=== PATIENT | male | born 1945 | race Asian ===

== ENCOUNTER 2017-12-03 19:45 | Inpatient (IN) | payer MEDICARE, BC ==
[~2017-12-03] VITALS: Ht 165.1 cm; Wt 59.4 kg
[2017-12-03] MEDS ORDERED: MULTIVITAMINS1 EA14 PO (19:51)
[2017-12-03] MEDS ORDERED: VITAMIN C500 M1 ORAL (19:51)
[2017-12-03] MEDS ORDERED: VITAMIN E100 UNI2 ORAL (19:51)
[2017-12-03] MEDS ORDERED: ASPIR 8181 MG ORAL (19:51)
[2017-12-03] MEDS ORDERED: BETA CAROT10000 UNIT PO (19:51)
[2017-12-03] MEDS ORDERED: VITAMIN A8000 UNIT PO (19:51)
[2017-12-03 20:00] VITALS: BP 99/67
[2017-12-03 20:25] LABS: BASOPHILS % (AUTO) 0.9 % (0.0-2.0); EOSINOPHILS % (AUTO) 0.9 % (0.0-3.0); HEMATOCRIT 29.3 % (42.0-52.0); HEMOGLOBIN 10.1 G/DL (14.2-18.0); LYMPHOCYTES % (AUTO) 13.4 % (20.0-45.0); MEAN CORPUSCULAR VOLUME 89 FL (80-99); MONOCYTES % (AUTO) 5.2 % (1.0-10.0); NEUTROPHILS % (AUTO) 79.6 % (45.0-75.0); PLATELET COUNT 208 K/UL (150-450); RED CELL DISTRIBUTION WIDTH 11.3 % (11.6-14.8); WHITE BLOOD COUNT 13.8 K/UL (4.8-10.8)
[2017-12-03 20:32] LABS: ANION GAP 6 mmol/L (5-15); BLOOD UREA NITROGEN 35 mg/dL (7-18); CALCIUM 8.1 MG/DL (8.5-10.1); CARBON DIOXIDE 27 MMOL/L (21-32); CHLORIDE 108 MMOL/L (98-107); CREATININE 0.9 MG/DL (0.55-1.30); POTASSIUM 4.2 MMOL/L (3.5-5.1); SODIUM 141 MMOL/L (136-145)
[2017-12-03 20:33] LABS: INR 1.1 (0.9-1.1)
[2017-12-03 20:37] LABS: ALANINE AMINOTRANSFERASE 24 U/L (12-78); ALBUMIN 2.5 G/DL (3.4-5.0); ALKALINE PHOSPHATASE 76 U/L (46-116); ASPARTATE AMINO TRANSFERASE 17 U/L (15-37); BILIRUBIN,TOTAL 0.1 MG/DL (0.2-1.0)
[2017-12-03 21:01] VITALS: BP 102/62
[2017-12-03] MEDS ORDERED: Miralax 17gm pkt ORAL PRN (21:15)
[2017-12-03] MEDS ORDERED: Morphine Sulfate 2mg/ml Inj IVP PRN (21:15)
[2017-12-03] MEDS ORDERED: Nitroglycerin Subl 0.4mg tab SL PRN (21:15)
[2017-12-03] MEDS ORDERED: Mylanta II UD 30ml ORAL PRN (21:15)
[2017-12-03] MEDS ORDERED: Sodium Chloride 500ML 500 ML IV ONE (21:30)
[2017-12-03] MEDS ORDERED: Phytonadione 10 MG in D5W 55 ML IVPB SCH (22:00)
[2017-12-03 22:24] VITALS: BP 102/64
[2017-12-03 22:30] VITALS: BP 103/65
[2017-12-03] MEDS: D5NS 1,000 ML IV SCH (22:34)
--- NOTE | 2017-12-03 23:33 | Emergency Room Report ---
History of Present Illness General Chief Complaint: Gastrointestinal Bleed Source: Patient Present Illness HPI Patient is a 72-year-old male presented after increased bloody stools. 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 He was noted to be the recently seen by his oncologist and had been advised to have surveillance screening every 6 months. He was noted to have increased dark stools as well as some intermittent epigastric abdominal discomfort. The patient was noted to have the prior surgical removal of the cancerous lesions. The patient is not currently being treated for cancer at this time.The patient had cancer treatments at [facility] Allergies: Coded Allergies: No Known Allergies (Unverified , 12/03/17) Patient History Past Medical History: see triage record Reviewed Nursing Documentation: PMH: Agreed; PSxH: Agreed Nursing Documentation-PMH Hx Cardiac Problems: No Hx Cancer: Yes - duodenal cancer Hx Gastrointestinal Problems: No Hx Neurological Problems: No Review of Systems All Other Systems: negative except mentioned in HPI Physical Exam Vital Signs Date Time Temp Pulse Resp B/P (MAP) Pulse Ox O2 Delivery O2 Flow Rate FiO2 12/03/17 19:45 97.0 78 16 110/66 98 Room Air 97.0 Sp02 EP Interpretation: reviewed, normal General Appearance: normal inspection, well appearing, no apparent distress, alert, GCS 15, non-toxic Head: atraumatic ENT: normal ENT inspection, hearing grossly normal, normal voice Neck: normal inspection, full range of motion, supple, no bony tend Respiratory: normal inspection, lungs clear, normal breath sounds, no respiratory distress, no retraction, no wheezing Cardiovascular #1: regular rate, rhythm, no edema Gastrointestinal: normal inspection, normal bowel sounds, non tender, soft, no guarding, no hernia Genitourinary: no CVA tenderness Musculoskeletal: normal inspection, back normal, normal range of motion Neurologic: normal inspection, alert, oriented x3, responsive, 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, speech normal Psychiatric: normal inspection, judgement/insight normal, mood/affect normal Skin: normal inspection, normal color, no rash Medical Decision Making Diagnostic Impression: Primary Impression: Gastrointestinal hemorrhage Additional Impression: Hx of GI malignancy ER Course Patient's 72-year-old male presented after increased abdominal pain.Differential diagnoses included ischemic bowel, appendicitis, perforated viscus, abdominal aortic aneurysm, inferior myocardial infarction, viral gastroenteritis Because of complexity of patient's case laboratory testing and imaging studies were ordered.Patient is given IV fluidsThe patient given IV acid blockers. The EKG interpreted by me showed normal sinus rhythm with rate of [address] or T wave changes. Dr. Kartik London was contacted for inpatient management. Labs Test 12/03/17 20:00 White Blood Count 13.8 K/UL (4.8-10.8) Red Blood Count 3.30 M/UL (4.70-6.10) Hemoglobin 10.1 G/DL (14.2-18.0) Hematocrit 29.3 % (42.0-52.0) Mean Corpuscular Volume 89 FL (80-99) Mean Corpuscular Hemoglobin 30.7 PG (27.0-31.0) Mean Corpuscular Hemoglobin Concent 34.6 G/DL (32.0-36.0) Red Cell Distribution Width 11.3 % (11.6-14.8) Platelet Count 208 K/UL (150-450) Mean Platelet Volume 6.9 FL (6.5-10.1) Neutrophils (%) (Auto) 79.6 % (45.0-75.0) Lymphocytes (%) (Auto) 13.4 % (20.0-45.0) Monocytes (%) (Auto) 5.2 % (1.0-10.0) Eosinophils (%) (Auto) 0.9 % (0.0-3.0) Basophils (%) (Auto) 0.9 % (0.0-2.0) Prothrombin Time 11.2 SEC (9.30-11.50) Prothromb Time International Ratio 1.1 (0.9-1.1) Activated Partial Thromboplast Time 25 SEC (23-33) Sodium Level 141 MMOL/L (136-145) Potassium Level 4.2 MMOL/L (3.5-5.1) Chloride Level 108 MMOL/L (98-107) Carbon Dioxide Level 27 MMOL/L (21-32) Anion Gap 6 mmol/L (5-15) Blood Urea Nitrogen 35 mg/dL (7-18) Creatinine 0.9 MG/DL (0.55-1.30) Estimat Glomerular Filtration Rate mL/min (>60) Glucose Level 162 MG/DL (74-106) Calcium Level 8.1 MG/DL (8.5-10.1) Total Bilirubin 0.1 MG/DL (0.2-1.0) Aspartate Amino Transf (AST/SGOT) 17 U/L (15-37) Alanine Aminotransferase (ALT/SGPT) 24 U/L (12-78) Alkaline Phosphatase 76 U/L (46-116) Troponin I 0.009 ng/mL (0.000-0.056) Total Protein 5.1 G/DL (6.4-8.2) Albumin 2.5 G/DL (3.4-5.0) Globulin 2.6 g/dL Albumin/Globulin Ratio 1.0 (1.0-2.7) Lipase 97 U/L (73-393) Last Vital Signs Date Time Temp Pulse Resp B/P (MAP) Pulse Ox O2 Delivery O2 Flow Rate FiO2 12/03/17 22:56 Room Air 12/03/17 22:51 69 12/03/17 22:30 98.2 19 103/65 (78) 98 98.2 Status: unchanged Disposition: ADMITTED INPATIENT Condition: Serious Referrals: NON PHYSICIAN (PCP) Marko Carrasco MD Dec 03, 2017 23:33
[2017-12-04] VITALS: BP 99/59
[2017-12-04 04:00] VITALS: BP 100/80
[2017-12-04 04:13] LABS: APPEARANCE,URINE CLEAR; BILIRUBIN, URINE NEGATIVE (NEGATIVE); COLOR,URINE PALE YELLOW; GLUCOSE, URINE (UA) 3+ (NEGATIVE); KETONES,URINE NEGATIVE (NEGATIVE); LEUKOCYTE ESTERASE ,URINE NEGATIVE (NEGATIVE); NITRITE,URINE NEGATIVE (NEGATIVE); PH,URINE 6 (4.5-8.0); PROTEIN,URINE 1+ (NEGATIVE); UROBILINOGEN,URINE NORMAL MG/DL (0.0-1.0)
[2017-12-04] MEDS: D5NS 1,000 ML IV SCH ×3 (06:38→23:01)
--- NOTE | 2017-12-04 07:27 | Consultation ---
Consult Note Consult Note Hematology Consult RFC: 12/04/17 ANN-MARIE DACOSTA: Josue London RFC: Leukopenia, FTT, GI Bleed, Duodenal ulcer Present Illness HPI 72-year-old male presented after increased bloody stools. 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 He was noted to be the recently seen by his oncologist and had been advised to have surveillance screening every 6 months. He was noted to have increased dark stools as well as some intermittent epigastric abdominal discomfort. The patient was noted to have the prior surgical removal of the cancerous lesions. The patient is not currently being treated for cancer at this time.The patient had cancer treatments at [facility]. Allergies: No Known Allergies (Unverified , 12/03/17) Patient History Past Medical History: see triage record Reviewed Nursing Documentation: PMH: Agreed; PSxH: Agreed Nursing Documentation-PMH Hx Cardiac Problems: No Hx Cancer: Yes - duodenal cancer Hx Gastrointestinal Problems: No Hx Neurological Problems: No ER ROS - General Review of Systems All Other Systems: negative except mentioned in HPI ER Physical Exam - General Physical Exam Last 24 Hour Vital Signs Date Time Temp Pulse Resp B/P (MAP) Pulse Ox O2 Delivery O2 Flow Rate FiO2 12/04/17 04:00 97.5 81 18 100/80 (87) 98 97.5 12/04/17 04:00 65 12/04/17 00:00 97.6 63 18 99/59 (72) 99 97.6 12/04/17 00:00 63 12/03/17 22:56 Room Air 12/03/17 22:51 69 12/03/17 22:30 98.2 69 19 103/65 (78) 98 98.2 12/03/17 22:24 69 20 102/64 98 Room Air 12/03/17 22:24 69 20 102/64 98 Room Air 12/03/17 21:01 76 16 102/62 100 Room Air 12/03/17 20:00 73 14 99/67 100 Room Air 12/03/17 19:45 97.0 78 16 110/66 98 Room Air 97.0 Sp02 EP Interpretation: reviewed, normal General Appearance: normal inspection, well appearing Head: atraumatic ENT: normal ENT inspection, hearing grossly normal Neck: normal inspection, full range of motion Respiratory: normal inspection, lungs clear, normal breath sounds Cardiovascular #1: regular rate, rhythm Gastrointestinal: normal inspection, BS+ Genitourinary: no CVA tenderness Musculoskeletal: normal inspection, back normal Psychiatric: normal inspection, judgement/insight normal Skin: normal inspection, normal color, no rash Laboratory Tests Test 12/03/17 20:00 12/04/17 00:00 12/04/17 01:45 White Blood Count 13.8 K/UL (4.8-10.8) H Red Blood Count 3.30 M/UL (4.70-6.10) L Hemoglobin 10.1 G/DL (14.2-18.0) L Hematocrit 29.3 % (42.0-52.0) L Mean Corpuscular Volume 89 FL (80-99) Mean Corpuscular Hemoglobin 30.7 PG (27.0-31.0) Mean Corpuscular Hemoglobin Concent 34.6 G/DL (32.0-36.0) Red Cell Distribution Width 11.3 % (11.6-14.8) L Platelet Count 208 K/UL (150-450) Mean Platelet Volume 6.9 FL (6.5-10.1) Neutrophils (%) (Auto) 79.6 % (45.0-75.0) H Lymphocytes (%) (Auto) 13.4 % (20.0-45.0) L Monocytes (%) (Auto) 5.2 % (1.0-10.0) Eosinophils (%) (Auto) 0.9 % (0.0-3.0) Basophils (%) (Auto) 0.9 % (0.0-2.0) Prothrombin Time 11.2 SEC (9.30-11.50) Prothromb Time International Ratio 1.1 (0.9-1.1) Activated Partial Thromboplast Time 25 SEC (23-33) Sodium Level 141 MMOL/L (136-145) Potassium Level 4.2 MMOL/L (3.5-5.1) Chloride Level 108 MMOL/L (98-107) H Carbon Dioxide Level 27 MMOL/L (21-32) Anion Gap 6 mmol/L (5-15) Blood Urea Nitrogen 35 mg/dL (7-18) H Creatinine 0.9 MG/DL (0.55-1.30) Estimat Glomerular Filtration Rate mL/min (>60) Glucose Level 162 MG/DL (74-106) H Calcium Level 8.1 MG/DL (8.5-10.1) L Total Bilirubin 0.1 MG/DL (0.2-1.0) L Aspartate Amino Transf (AST/SGOT) 17 U/L (15-37) Alanine Aminotransferase (ALT/SGPT) 24 U/L (12-78) Alkaline Phosphatase 76 U/L (46-116) Troponin I 0.009 ng/mL (0.000-0.056) Total Protein 5.1 G/DL (6.4-8.2) L Albumin 2.5 G/DL (3.4-5.0) L Globulin 2.6 g/dL Albumin/Globulin Ratio 1.0 (1.0-2.7) Lipase 97 U/L (73-393) Urine Color Pale yellow Urine Appearance Clear Urine pH 6 (4.5-8.0) Urine Specific [place] 1.020 (1.005-1.035) Urine Protein 1+ (NEGATIVE) H Urine Glucose (UA) 3+ (NEGATIVE) H Urine Ketones Negative (NEGATIVE) Urine Blood 1+ (NEGATIVE) H Urine Nitrite Negative (NEGATIVE) Urine Bilirubin Negative (NEGATIVE) Urine Urobilinogen Normal MG/DL (0.0-1.0) Urine Leukocyte Esterase Negative (NEGATIVE) Urine RBC 0-2 /HPF (0 - 0) H Urine WBC 0 /HPF (0 - 0) Urine Squamous Epithelial Cells Few /LPF (NONE/OCC) Urine Bacteria None /HPF (NONE) Urine Eosinophils None seen (NONE SEEN) Urine Random Sodium 102 mmol/L (20-110) Urine Potassium Timed 84 mmol/L (12-62) H Stool Occult Blood Pending Assessment and Recs: # GI duodenal cancer -- has had resection and now getting chemotherapy, will need to obtain further history --> getting treatment at [facility] and will need to obtain further history --> order has been placed --> as per Gi eval, bleed may be originating from this tumor --> further chemo as per primary oncologist at [facility] --> cea has been ordered # Anemia due to Gi bleed --> trend h/h and as per gi --> may need endoscopy --> PPI bid has been ordered --> anemia panel has been ordered # Leukocytosis likely 2/2 malignancy v reactive process --> r/o infection and peripheral smear reviewed # FTT likely due to malignancy --> cea has been ordered # Increased abdominal pain. likely related to malignancy v other cause --> gi recs appreciated Greatly appreciate consultation! Ramy Pillai MD Dec 04, 2017 07:27
[2017-12-04 07:56] LABS: BASOPHILS % (AUTO) 0.9 % (0.0-2.0); EOSINOPHILS % (AUTO) 1.2 % (0.0-3.0); HEMATOCRIT 26.4 % (42.0-52.0); HEMOGLOBIN 8.8 G/DL (14.2-18.0); LYMPHOCYTES % (AUTO) 24.1 % (20.0-45.0); MEAN CORPUSCULAR VOLUME 87 FL (80-99); MONOCYTES % (AUTO) 5.8 % (1.0-10.0); PLATELET COUNT 187 K/UL (150-450); RED BLOOD COUNT 3.04 M/UL (4.70-6.10); RED CELL DISTRIBUTION WIDTH 11.4 % (11.6-14.8); WHITE BLOOD COUNT 8.1 K/UL (4.8-10.8)
[2017-12-04 08:00] VITALS: BP 105/50
[2017-12-04 08:28] LABS: % IRON SATURATION 23 % (15-50); IRON 48 ug/dL (50-175); TOTAL IRON BINDING CAPACITY 210 ug/dL (250-450)
[2017-12-04 08:29] LABS: LACTATE DEHYDROGENASE 118 U/L (81-234); PHOSPHORUS 2.9 MG/DL (2.5-4.9)
[2017-12-04 08:40] LABS: ALANINE AMINOTRANSFERASE 30 U/L (12-78); ALBUMIN 2.4 G/DL (3.4-5.0); ALKALINE PHOSPHATASE 63 U/L (46-116); AMYLASE 39 U/L (25-115); ANION GAP 4 mmol/L (5-15); ASPARTATE AMINO TRANSFERASE 18 U/L (15-37); BILIRUBIN,TOTAL 0.1 MG/DL (0.2-1.0); BLOOD UREA NITROGEN 24 mg/dL (7-18); CALCIUM 7.5 MG/DL (8.5-10.1); CARBON DIOXIDE 28 MMOL/L (21-32); CHLORIDE 110 MMOL/L (98-107); CREATININE 0.7 MG/DL (0.55-1.30); POTASSIUM 4.1 MMOL/L (3.5-5.1); SODIUM 142 MMOL/L (136-145)
[2017-12-04] MEDS ORDERED: Pantoprazole Inj IVP SCH (09:00)
[2017-12-04 09:08] LABS: CREATINE KINASE 74 U/L (26-308)
--- NOTE | 2017-12-04 10:14 | Consultation ---
History of Present Illness General Date patient seen: Dec 04, 2017 Chief Complaint: Gastrointestinal Bleed Present Illness HPI 72-year-old male with hx of duodenal cancer, s/p resection presented to [place] ER with dark, bloody stools and some intermittent epigastric abdominal discomfort. The patient is not currently being treated for cancer at this time. He is admitted to telemetry for further work up. Allergies: Coded Allergies: No Known Allergies (Unverified , 12/03/17) Medication History Scheduled Ascorbic Acid* (Vitamin C*), 500 MG ORAL DAILY, (Reported) Aspirin* (Aspir 81*), 81 MG ORAL DAILY, (Reported) Vitamin E Acid Succinate (Vitamin E), 100 UNIT ORAL DAILY, (Reported) Miscellaneous Medications Beta-Carotene (Beta Carotene), 10,000 UNIT PO, (Reported) Multivitamin (Multivitamins), 1 EACH PO, (Reported) Vitamin A (Vitamin A), 8,000 UNIT PO, (Reported) Patient History Healthcare decision maker Resuscitation status Full Code Advanced Directive on File No Past Medical/Surgical History Past Medical/Surgical History: (1) Hx of GI malignancy Review of Systems Gastrointestinal: Reports: abdominal pain, other - dark stool All Other Systems: negative except mentioned in HPI Physical Exam General Appearance: cachetic Lines, tubes and drains: peripheral HEENT: normocephalic, atraumatic Neck: non-tender, normal alignment Respiratory/Chest: chest wall non-tender, lungs clear Cardiovascular/Chest: normal peripheral pulses, normal rate Abdomen: normal bowel sounds, non tender Genitourinary/Rectal: normal genital exam Extremities: normal range of motion Skin Exam: normal pigmentation 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 normal Last 24 Hour Vital Signs Date Time Temp Pulse Resp B/P (MAP) Pulse Ox O2 Delivery O2 Flow Rate FiO2 12/04/17 09:00 Room Air 12/04/17 08:00 98.3 65 18 105/50 (68) 97 98.3 12/04/17 08:00 65 12/04/17 04:00 97.5 81 18 100/80 (87) 98 97.5 12/04/17 04:00 65 12/04/17 00:00 97.6 63 18 99/59 (72) 99 97.6 12/04/17 00:00 63 12/03/17 22:56 Room Air 12/03/17 22:51 69 12/03/17 22:30 98.2 69 19 103/65 (78) 98 98.2 12/03/17 22:24 69 20 102/64 98 Room Air 12/03/17 22:24 69 20 102/64 98 Room Air 12/03/17 21:01 76 16 102/62 100 Room Air 12/03/17 20:00 73 14 99/67 100 Room Air 12/03/17 19:45 97.0 78 16 110/66 98 Room Air 97.0 Intake and Output 12/03/17 12/04/17 19:00 07:00 Intake Total 1386 ml Balance 1386 ml Intake Oral 0 ml IV Total 1386 ml # Voids 2 # Bowel Movements 1 Laboratory Tests Test 12/03/17 20:00 12/04/17 00:00 12/04/17 01:45 12/04/17 07:10 White Blood Count 13.8 K/UL (4.8-10.8) H 8.1 K/UL (4.8-10.8) Red Blood Count 3.30 M/UL (4.70-6.10) L 3.04 M/UL (4.70-6.10) L Hemoglobin 10.1 G/DL (14.2-18.0) L 8.8 G/DL (14.2-18.0) L Hematocrit 29.3 % (42.0-52.0) L 26.4 % (42.0-52.0) L Mean Corpuscular Volume 89 FL (80-99) 87 FL (80-99) Mean Corpuscular Hemoglobin 30.7 PG (27.0-31.0) 29.0 PG (27.0-31.0) Mean Corpuscular Hemoglobin Concent 34.6 G/DL (32.0-36.0) 33.5 G/DL (32.0-36.0) Red Cell Distribution Width 11.3 % (11.6-14.8) L 11.4 % (11.6-14.8) L Platelet Count 208 K/UL (150-450) 187 K/UL (150-450) Mean Platelet Volume 6.9 FL (6.5-10.1) 6.8 FL (6.5-10.1) Neutrophils (%) (Auto) 79.6 % (45.0-75.0) H 68.0 % (45.0-75.0) Lymphocytes (%) (Auto) 13.4 % (20.0-45.0) L 24.1 % (20.0-45.0) Monocytes (%) (Auto) 5.2 % (1.0-10.0) 5.8 % (1.0-10.0) Eosinophils (%) (Auto) 0.9 % (0.0-3.0) 1.2 % (0.0-3.0) Basophils (%) (Auto) 0.9 % (0.0-2.0) 0.9 % (0.0-2.0) Prothrombin Time 11.2 SEC (9.30-11.50) 10.9 SEC (9.30-11.50) Prothromb Time International Ratio 1.1 (0.9-1.1) 1.0 (0.9-1.1) Activated Partial Thromboplast Time 25 SEC (23-33) 26 SEC (23-33) Sodium Level 141 MMOL/L (136-145) 142 MMOL/L (136-145) Potassium Level 4.2 MMOL/L (3.5-5.1) 4.1 MMOL/L (3.5-5.1) Chloride Level 108 MMOL/L (98-107) H 110 MMOL/L (98-107) H Carbon Dioxide Level 27 MMOL/L (21-32) 28 MMOL/L (21-32) Anion Gap 6 mmol/L (5-15) 4 mmol/L (5-15) L Blood Urea Nitrogen 35 mg/dL (7-18) H 24 mg/dL (7-18) H Creatinine 0.9 MG/DL (0.55-1.30) 0.7 MG/DL (0.55-1.30) Estimat Glomerular Filtration Rate mL/min (>60) mL/min (>60) Glucose Level 162 MG/DL (74-106) H 121 MG/DL (74-106) H Calcium Level 8.1 MG/DL (8.5-10.1) L 7.5 MG/DL (8.5-10.1) L Total Bilirubin 0.1 MG/DL (0.2-1.0) L 0.1 MG/DL (0.2-1.0) L Aspartate Amino Transf (AST/SGOT) 17 U/L (15-37) 18 U/L (15-37) Alanine Aminotransferase (ALT/SGPT) 24 U/L (12-78) 30 U/L (12-78) Alkaline Phosphatase 76 U/L (46-116) 63 U/L (46-116) Troponin I 0.009 ng/mL (0.000-0.056) Total Protein 5.1 G/DL (6.4-8.2) L 4.7 G/DL (6.4-8.2) L Albumin 2.5 G/DL (3.4-5.0) L 2.4 G/DL (3.4-5.0) L Globulin 2.6 g/dL 2.3 g/dL Albumin/Globulin Ratio 1.0 (1.0-2.7) 1.0 (1.0-2.7) Lipase 97 U/L (73-393) Urine Color Pale yellow Urine Appearance Clear Urine pH 6 (4.5-8.0) Urine Specific [place] 1.020 (1.005-1.035) Urine Protein 1+ (NEGATIVE) H Urine Glucose (UA) 3+ (NEGATIVE) H Urine Ketones Negative (NEGATIVE) Urine Blood 1+ (NEGATIVE) H Urine Nitrite Negative (NEGATIVE) Urine Bilirubin Negative (NEGATIVE) Urine Urobilinogen Normal MG/DL (0.0-1.0) Urine Leukocyte Esterase Negative (NEGATIVE) Urine RBC 0-2 /HPF (0 - 0) H Urine WBC 0 /HPF (0 - 0) Urine Squamous Epithelial Cells Few /LPF (NONE/OCC) Urine Bacteria None /HPF (NONE) Urine Eosinophils None seen (NONE SEEN) Urine Random Sodium 102 mmol/L (20-110) Urine Potassium Timed 84 mmol/L (12-62) H Stool Occult Blood Positive (NEGATIVE) Erythrocyte Sedimentation Rate 6 MM/HR (0-20) Reticulocyte Count Pending Phosphorus Level 2.9 MG/DL (2.5-4.9) Magnesium Level 1.9 MG/DL (1.8-2.4) Iron Level 48 ug/dL (50-175) L Total Iron Binding Capacity 210 ug/dL (250-450) L Percent Iron Saturation 23 % (15-50) Unsaturated Iron Binding 162 ug/dL (112-346) Ferritin 69 NG/ML (8-388) Lactate Dehydrogenase 118 U/L (81-234) C-Reactive Protein, Quantitative < 0.4 mg/dL (0.00-0.90) Amylase Level 39 U/L (25-115) Carcinoembryonic Antigen Pending Vitamin B12 Level 762 PG/ML (193-986) Folate 17.7 NG/ML (8.6-58.9) Test 12/04/17 08:00 Uric Acid 3.0 MG/DL (2.6-7.2) Total Creatine Kinase 74 U/L (26-308) Height (Feet): 5 Height (Inches): 5.00 Weight (Pounds): 131 Medications Current Medications Medications (Trade) Dose Ordered Sig/[place] Route PRN Reason Start Time Stop Time Status Last Admin Dose Admin Acetaminophen (Tylenol) 650 mg Q4H PRN ORAL fever 12/03/17 21:15 01/02/18 21:14 Al Hydroxide/Mg Hydroxide (Mylanta II) 30 ml Q6H PRN ORAL dyspepsia 12/03/17 21:15 01/02/18 21:14 Dextrose (Dextrose 50%) 25 ml Q30M PRN IV Hypoglycemia 12/03/17 21:15 01/02/18 21:14 Dextrose (Dextrose 50%) 50 ml Q30M PRN IV Hypoglycemia 12/03/17 21:15 01/02/18 21:14 Dextrose/Sodium Chloride 1,000 ml @ 100 mls/hr Q10H IV 12/03/17 21:09 01/02/18 21:08 12/04/17 06:38 Diphenhydramine HCl (Benadryl) 25 mg Q6H PRN ORAL Itching/Pruritis 12/03/17 21:15 01/02/18 21:14 Morphine Sulfate (Morphine Sulfate) 2 mg Q4H PRN IVP severe Pain (Pain Scale 7-10) 12/03/17 21:15 12/10/17 21:14 Nitroglycerin (Ntg) 0.4 mg Q5M X 3 DOSES PRN SL Prn Chest Pain 12/03/17 21:15 01/02/18 21:14 Ondansetron HCl (Zofran) 4 mg Q6H PRN IVP Nausea & Vomiting 12/03/17 21:15 01/02/18 21:14 Pantoprazole (Protonix) 40 mg BID IVP 12/04/17 09:00 01/03/18 08:59 12/04/17 08:05 Polyethylene Glycol (Miralax) 17 gm HSPRN PRN ORAL Constipation 12/03/17 21:15 01/02/18 21:14 Temazepam (Restoril) 15 mg HSPRN PRN ORAL Insomnia 12/03/17 21:15 12/10/17 21:14 Assessment/Plan Problem List: (1) Hx of GI malignancy ICD Codes: Z85.00 - Personal history of malignant neoplasm of unspecified digestive organ SNOMED: 297460025, 561751173 (2) Gastrointestinal hemorrhage ICD Codes: K92.2 - Gastrointestinal hemorrhage, unspecified SNOMED: 22130186, 771867482 (3) UGIB (upper gastrointestinal bleed) ICD Codes: K92.2 - Gastrointestinal hemorrhage, unspecified SNOMED: 60794424 Assessment/Plan NPO iv fluids prbc prn GI evaluation Surgical evaluation dvt prophylaxis H2 blockers symptomatic treatment Quang Causey MD Dec 04, 2017 10:14
[2017-12-04 11:22] VITALS: BP 105/50
--- NOTE | 2017-12-04 11:44 | Consultation ---
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 (not on current tx; prior tx at [facility]) presented to ED on 12/03 with dark, bloody stools and intermittent epigastric abd discomfort Afebrile mild leukocytosis, now resolved off abx Allergies: Coded Allergies: No Known Allergies (Unverified , 12/03/17) Medication History Scheduled Ascorbic Acid* (Vitamin C*), 500 MG ORAL DAILY, (Reported) Aspirin* (Aspir 81*), 81 MG ORAL DAILY, (Reported) Vitamin E Acid Succinate (Vitamin E), 100 UNIT ORAL DAILY, (Reported) Miscellaneous Medications Beta-Carotene (Beta Carotene), 10,000 UNIT PO, (Reported) Multivitamin (Multivitamins), 1 EACH PO, (Reported) Vitamin A (Vitamin A), 8,000 UNIT PO, (Reported) Patient History Healthcare decision maker Resuscitation status Full Code Advanced Directive on File No Patient History Narrative Pmhx: as above Shx: reviewed Fhx: non contributory Review of Systems All Other Systems: negative except mentioned in HPI Physical Exam Physical Exam Narrative General Appearance: normal inspection, well appearing Head: atraumatic ENT: normal ENT inspection, hearing grossly normal Neck: normal inspection, full range of motion Respiratory: normal inspection, lungs clear, normal breath sounds Cardiovascular regular rate, rhythm Gastrointestinal: normal inspection, BS+ Genitourinary: no CVA tenderness Musculoskeletal: normal inspection, back normal Skin: normal inspection, normal color, no rash Last 24 Hour Vital Signs Date Time Temp Pulse Resp B/P (MAP) Pulse Ox O2 Delivery O2 Flow Rate FiO2 12/04/17 11:22 98.3 77 18 105/50 (68) 99 98.3 12/04/17 09:00 Room Air 12/04/17 08:00 98.3 65 18 105/50 (68) 97 98.3 12/04/17 08:00 65 12/04/17 04:00 97.5 81 18 100/80 (87) 98 97.5 12/04/17 04:00 65 12/04/17 00:00 97.6 63 18 99/59 (72) 99 97.6 12/04/17 00:00 63 12/03/17 22:56 Room Air 12/03/17 22:51 69 12/03/17 22:30 98.2 69 19 103/65 (78) 98 98.2 12/03/17 22:24 69 20 102/64 98 Room Air 12/03/17 22:24 69 20 102/64 98 Room Air 12/03/17 21:01 76 16 102/62 100 Room Air 12/03/17 20:00 73 14 99/67 100 Room Air 12/03/17 19:45 97.0 78 16 110/66 98 Room Air 97.0 Intake and Output 12/03/17 12/04/17 19:00 07:00 Intake Total 1386 ml Balance 1386 ml Intake Oral 0 ml IV Total 1386 ml # Voids 2 # Bowel Movements 1 Laboratory Tests Test 12/03/17 20:00 12/04/17 00:00 12/04/17 01:45 12/04/17 07:10 White Blood Count 13.8 K/UL (4.8-10.8) H 8.1 K/UL (4.8-10.8) Red Blood Count 3.30 M/UL (4.70-6.10) L 3.04 M/UL (4.70-6.10) L Hemoglobin 10.1 G/DL (14.2-18.0) L 8.8 G/DL (14.2-18.0) L Hematocrit 29.3 % (42.0-52.0) L 26.4 % (42.0-52.0) L Mean Corpuscular Volume 89 FL (80-99) 87 FL (80-99) Mean Corpuscular Hemoglobin 30.7 PG (27.0-31.0) 29.0 PG (27.0-31.0) Mean Corpuscular Hemoglobin Concent 34.6 G/DL (32.0-36.0) 33.5 G/DL (32.0-36.0) Red Cell Distribution Width 11.3 % (11.6-14.8) L 11.4 % (11.6-14.8) L Platelet Count 208 K/UL (150-450) 187 K/UL (150-450) Mean Platelet Volume 6.9 FL (6.5-10.1) 6.8 FL (6.5-10.1) Neutrophils (%) (Auto) 79.6 % (45.0-75.0) H 68.0 % (45.0-75.0) Lymphocytes (%) (Auto) 13.4 % (20.0-45.0) L 24.1 % (20.0-45.0) Monocytes (%) (Auto) 5.2 % (1.0-10.0) 5.8 % (1.0-10.0) Eosinophils (%) (Auto) 0.9 % (0.0-3.0) 1.2 % (0.0-3.0) Basophils (%) (Auto) 0.9 % (0.0-2.0) 0.9 % (0.0-2.0) Prothrombin Time 11.2 SEC (9.30-11.50) 10.9 SEC (9.30-11.50) Prothromb Time International Ratio 1.1 (0.9-1.1) 1.0 (0.9-1.1) Activated Partial Thromboplast Time 25 SEC (23-33) 26 SEC (23-33) Sodium Level 141 MMOL/L (136-145) 142 MMOL/L (136-145) Potassium Level 4.2 MMOL/L (3.5-5.1) 4.1 MMOL/L (3.5-5.1) Chloride Level 108 MMOL/L (98-107) H 110 MMOL/L (98-107) H Carbon Dioxide Level 27 MMOL/L (21-32) 28 MMOL/L (21-32) Anion Gap 6 mmol/L (5-15) 4 mmol/L (5-15) L Blood Urea Nitrogen 35 mg/dL (7-18) H 24 mg/dL (7-18) H Creatinine 0.9 MG/DL (0.55-1.30) 0.7 MG/DL (0.55-1.30) Estimat Glomerular Filtration Rate mL/min (>60) mL/min (>60) Glucose Level 162 MG/DL (74-106) H 121 MG/DL (74-106) H Calcium Level 8.1 MG/DL (8.5-10.1) L 7.5 MG/DL (8.5-10.1) L Total Bilirubin 0.1 MG/DL (0.2-1.0) L 0.1 MG/DL (0.2-1.0) L Aspartate Amino Transf (AST/SGOT) 17 U/L (15-37) 18 U/L (15-37) Alanine Aminotransferase (ALT/SGPT) 24 U/L (12-78) 30 U/L (12-78) Alkaline Phosphatase 76 U/L (46-116) 63 U/L (46-116) Troponin I 0.009 ng/mL (0.000-0.056) Total Protein 5.1 G/DL (6.4-8.2) L 4.7 G/DL (6.4-8.2) L Albumin 2.5 G/DL (3.4-5.0) L 2.4 G/DL (3.4-5.0) L Globulin 2.6 g/dL 2.3 g/dL Albumin/Globulin Ratio 1.0 (1.0-2.7) 1.0 (1.0-2.7) Lipase 97 U/L (73-393) Urine Color Pale yellow Urine Appearance Clear Urine pH 6 (4.5-8.0) Urine Specific [place] 1.020 (1.005-1.035) Urine Protein 1+ (NEGATIVE) H Urine Glucose (UA) 3+ (NEGATIVE) H Urine Ketones Negative (NEGATIVE) Urine Blood 1+ (NEGATIVE) H Urine Nitrite Negative (NEGATIVE) Urine Bilirubin Negative (NEGATIVE) Urine Urobilinogen Normal MG/DL (0.0-1.0) Urine Leukocyte Esterase Negative (NEGATIVE) Urine RBC 0-2 /HPF (0 - 0) H Urine WBC 0 /HPF (0 - 0) Urine Squamous Epithelial Cells Few /LPF (NONE/OCC) Urine Bacteria None /HPF (NONE) Urine Eosinophils None seen (NONE SEEN) Urine Random Sodium 102 mmol/L (20-110) Urine Potassium Timed 84 mmol/L (12-62) H Stool Occult Blood Positive (NEGATIVE) Differential Total Cells Counted 100 Neutrophils % (Manual) 69 % (45-75) Lymphocytes % (Manual) 25 % (20-45) Monocytes % (Manual) 5 % (1-10) Eosinophils % (Manual) 1 % (0-3) Basophils % (Manual) 0 % (0-2) Band Neutrophils 0 % (0-8) Platelet Estimate Adequate Platelet Morphology Normal Hypochromasia 2+ Anisocytosis 1+ Spherocytes 1+ Erythrocyte Sedimentation Rate 6 MM/HR (0-20) Reticulocyte Count 1.6 % (0.0-2.0) Phosphorus Level 2.9 MG/DL (2.5-4.9) Magnesium Level 1.9 MG/DL (1.8-2.4) Iron Level 48 ug/dL (50-175) L Total Iron Binding Capacity 210 ug/dL (250-450) L Percent Iron Saturation 23 % (15-50) Unsaturated Iron Binding 162 ug/dL (112-346) Ferritin 69 NG/ML (8-388) Lactate Dehydrogenase 118 U/L (81-234) C-Reactive Protein, Quantitative < 0.4 mg/dL (0.00-0.90) Amylase Level 39 U/L (25-115) Carcinoembryonic Antigen Pending Vitamin B12 Level 762 PG/ML (193-986) Folate 17.7 NG/ML (8.6-58.9) Test 12/04/17 08:00 Uric Acid 3.0 MG/DL (2.6-7.2) Total Creatine Kinase 74 U/L (26-308) Height (Feet): 5 Height (Inches): 5.00 Weight (Pounds): 131 Medications Current Medications Medications (Trade) Dose Ordered Sig/Paloma Route PRN Reason Start Time Stop Time Status Last Admin Dose Admin Acetaminophen (Tylenol) 650 mg Q4H PRN ORAL fever 12/03/17 21:15 01/02/18 21:14 Al Hydroxide/Mg Hydroxide (Mylanta II) 30 ml Q6H PRN ORAL dyspepsia 12/03/17 21:15 01/02/18 21:14 Dextrose (Dextrose 50%) 25 ml Q30M PRN IV Hypoglycemia 12/03/17 21:15 01/02/18 21:14 Dextrose (Dextrose 50%) 50 ml Q30M PRN IV Hypoglycemia 12/03/17 21:15 01/02/18 21:14 Dextrose/Sodium Chloride 1,000 ml @ 75 mls/hr [id number] IV 12/04/17 10:03 01/02/18 10:02 12/04/17 10:24 Diphenhydramine HCl (Benadryl) 25 mg Q6H PRN ORAL Itching/Pruritis 12/03/17 21:15 01/02/18 21:14 Morphine Sulfate (Morphine Sulfate) 2 mg Q4H PRN IVP severe Pain (Pain Scale 7-10) 12/03/17 21:15 12/10/17 21:14 Nitroglycerin (Ntg) 0.4 mg Q5M X 3 DOSES PRN SL Prn Chest Pain 12/03/17 21:15 01/02/18 21:14 Ondansetron HCl (Zofran) 4 mg Q6H PRN IVP Nausea & Vomiting 12/03/17 21:15 01/02/18 21:14 Pantoprazole (Protonix) 40 mg BID IVP 12/04/17 09:00 01/03/18 08:59 12/04/17 08:05 Polyethylene Glycol (Miralax) 17 gm HSPRN PRN ORAL Constipation 12/03/17 21:15 01/02/18 21:14 Temazepam (Restoril) 15 mg HSPRN PRN ORAL Insomnia 12/03/17 21:15 12/10/17 21:14 Assessment/Plan Assessment/Plan Abx: None Assessment: Mild leukocytosis- resolved- likely reactive in the setting off GIB -u/a neg Afebrile GIB (melena, +occult blood) Abd pain duodenal CA s/p resection (not on current tx; prior tx at [facility]) Plan: -Continue to monitor off abx -f/u cx -Monitor CBC/CMP, temperatures -aspiration precautions -GI eval Thank you for this consultation. Will continue to follow along with you. Discussed with CHAVA. Tessa Luna M.D. Dec 04, 2017 11:44
--- NOTE | 2017-12-04 12:03 | GI Initial Consult Note ---
History of Present Illness General Date patient seen: Dec 04, 2017 Time patient seen: 12:00 Reason for Hospitalization: Gastrointestinal Bleed Referring physician: ZORAIDA ARITA Reason for Consultation: GI BLEED Present Illness HPI Patient is a 72-year-old male presented after increased bloody stools. 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 He was noted to be the recently seen by his oncologist and had been advised to have surveillance screening every 6 months. He was noted to have increased dark stools as well as some intermittent epigastric abdominal discomfort. The patient was noted to have the prior surgical removal of the cancerous lesions. The patient is not currently being treated for cancer at this time.The patient had cancer treatments at [facility] consulted for GI bleed. Pt seen, awake A&Ox4 NAD with no active s/sx of N/V/ D. Per patient had BRBPR and melena x1 days. Stated this is the first time he has had these episodes. 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 History of endoscopy / colonoscopy approximately a year ago. Labs reviewed show anemia and positive OB. Home Meds Reported Medications Beta-Carotene (BETA CAROTENE) 10,000 Unit Capsule, [id number] UNIT PO, CAP 12/03/17 Vitamin E Acid Succinate (VITAMIN E) 100 Unit Tablet, 100 UNIT ORAL DAILY, TAB 12/03/17 Vitamin A (VITAMIN A) 8,000 Unit Capsule, 8000 UNIT PO, CAP 12/03/17 Ascorbic Acid* (VITAMIN C*) 500 Mg Tablet, 500 MG ORAL DAILY, #30 TAB 0 Refills 12/03/17 Multivitamin (Multivitamins) 1 Each Tablet, 1 EACH PO, TAB 12/03/17 Aspirin* (ASPIR 81*) 81 Mg Tablet.dr, 81 MG ORAL DAILY, TAB 12/03/17 Med list reviewed/reconciled: Yes Allergies: Coded Allergies: No Known Allergies (Unverified , 12/03/17) Patient History History Provided By: Patient, Medical Record PMH Narrative Hx Cardiac Problems: No Hx Cancer: Yes - duodenal cancer Hx Gastrointestinal Problems: No Hx Neurological Problems: No Review of Systems All Other Systems: negative except mentioned in HPI Physical Exam Vital Signs Date Time Temp Pulse Resp B/P (MAP) Pulse Ox O2 Delivery O2 Flow Rate FiO2 12/03/17 19:45 97.0 78 16 110/66 98 Room Air 97.0 Sp02 EP Interpretation: reviewed, normal Labs Laboratory Tests Test 12/03/17 20:00 12/04/17 00:00 12/04/17 01:45 12/04/17 07:10 White Blood Count 13.8 K/UL (4.8-10.8) H 8.1 K/UL (4.8-10.8) Red Blood Count 3.30 M/UL (4.70-6.10) L 3.04 M/UL (4.70-6.10) L Hemoglobin 10.1 G/DL (14.2-18.0) L 8.8 G/DL (14.2-18.0) L Hematocrit 29.3 % (42.0-52.0) L 26.4 % (42.0-52.0) L Mean Corpuscular Volume 89 FL (80-99) 87 FL (80-99) Mean Corpuscular Hemoglobin 30.7 PG (27.0-31.0) 29.0 PG (27.0-31.0) Mean Corpuscular Hemoglobin Concent 34.6 G/DL (32.0-36.0) 33.5 G/DL (32.0-36.0) Red Cell Distribution Width 11.3 % (11.6-14.8) L 11.4 % (11.6-14.8) L Platelet Count 208 K/UL (150-450) 187 K/UL (150-450) Mean Platelet Volume 6.9 FL (6.5-10.1) 6.8 FL (6.5-10.1) Neutrophils (%) (Auto) 79.6 % (45.0-75.0) H 68.0 % (45.0-75.0) Lymphocytes (%) (Auto) 13.4 % (20.0-45.0) L 24.1 % (20.0-45.0) Monocytes (%) (Auto) 5.2 % (1.0-10.0) 5.8 % (1.0-10.0) Eosinophils (%) (Auto) 0.9 % (0.0-3.0) 1.2 % (0.0-3.0) Basophils (%) (Auto) 0.9 % (0.0-2.0) 0.9 % (0.0-2.0) Prothrombin Time 11.2 SEC (9.30-11.50) 10.9 SEC (9.30-11.50) Prothromb Time International Ratio 1.1 (0.9-1.1) 1.0 (0.9-1.1) Activated Partial Thromboplast Time 25 SEC (23-33) 26 SEC (23-33) Sodium Level 141 MMOL/L (136-145) 142 MMOL/L (136-145) Potassium Level 4.2 MMOL/L (3.5-5.1) 4.1 MMOL/L (3.5-5.1) Chloride Level 108 MMOL/L (98-107) H 110 MMOL/L (98-107) H Carbon Dioxide Level 27 MMOL/L (21-32) 28 MMOL/L (21-32) Anion Gap 6 mmol/L (5-15) 4 mmol/L (5-15) L Blood Urea Nitrogen 35 mg/dL (7-18) H 24 mg/dL (7-18) H Creatinine 0.9 MG/DL (0.55-1.30) 0.7 MG/DL (0.55-1.30) Estimat Glomerular Filtration Rate mL/min (>60) mL/min (>60) Glucose Level 162 MG/DL (74-106) H 121 MG/DL (74-106) H Calcium Level 8.1 MG/DL (8.5-10.1) L 7.5 MG/DL (8.5-10.1) L Total Bilirubin 0.1 MG/DL (0.2-1.0) L 0.1 MG/DL (0.2-1.0) L Aspartate Amino Transf (AST/SGOT) 17 U/L (15-37) 18 U/L (15-37) Alanine Aminotransferase (ALT/SGPT) 24 U/L (12-78) 30 U/L (12-78) Alkaline Phosphatase 76 U/L (46-116) 63 U/L (46-116) Troponin I 0.009 ng/mL (0.000-0.056) Total Protein 5.1 G/DL (6.4-8.2) L 4.7 G/DL (6.4-8.2) L Albumin 2.5 G/DL (3.4-5.0) L 2.4 G/DL (3.4-5.0) L Globulin 2.6 g/dL 2.3 g/dL Albumin/Globulin Ratio 1.0 (1.0-2.7) 1.0 (1.0-2.7) Lipase 97 U/L (73-393) Urine Color Pale yellow Urine Appearance Clear Urine pH 6 (4.5-8.0) Urine Specific [place] 1.020 (1.005-1.035) Urine Protein 1+ (NEGATIVE) H Urine Glucose (UA) 3+ (NEGATIVE) H Urine Ketones Negative (NEGATIVE) Urine Blood 1+ (NEGATIVE) H Urine Nitrite Negative (NEGATIVE) Urine Bilirubin Negative (NEGATIVE) Urine Urobilinogen Normal MG/DL (0.0-1.0) Urine Leukocyte Esterase Negative (NEGATIVE) Urine RBC 0-2 /HPF (0 - 0) H Urine WBC 0 /HPF (0 - 0) Urine Squamous Epithelial Cells Few /LPF (NONE/OCC) Urine Bacteria None /HPF (NONE) Urine Eosinophils None seen (NONE SEEN) Urine Random Sodium 102 mmol/L (20-110) Urine Potassium Timed 84 mmol/L (12-62) H Stool Occult Blood Positive (NEGATIVE) Differential Total Cells Counted 100 Neutrophils % (Manual) 69 % (45-75) Lymphocytes % (Manual) 25 % (20-45) Monocytes % (Manual) 5 % (1-10) Eosinophils % (Manual) 1 % (0-3) Basophils % (Manual) 0 % (0-2) Band Neutrophils 0 % (0-8) Platelet Estimate Adequate Platelet Morphology Normal Hypochromasia 2+ Anisocytosis 1+ Spherocytes 1+ Erythrocyte Sedimentation Rate 6 MM/HR (0-20) Reticulocyte Count 1.6 % (0.0-2.0) Phosphorus Level 2.9 MG/DL (2.5-4.9) Magnesium Level 1.9 MG/DL (1.8-2.4) Iron Level 48 ug/dL (50-175) L Total Iron Binding Capacity 210 ug/dL (250-450) L Percent Iron Saturation 23 % (15-50) Unsaturated Iron Binding 162 ug/dL (112-346) Ferritin 69 NG/ML (8-388) Lactate Dehydrogenase 118 U/L (81-234) C-Reactive Protein, Quantitative < 0.4 mg/dL (0.00-0.90) Amylase Level 39 U/L (25-115) Carcinoembryonic Antigen Pending Vitamin B12 Level 762 PG/ML (193-986) Folate 17.7 NG/ML (8.6-58.9) Test 12/04/17 08:00 Uric Acid 3.0 MG/DL (2.6-7.2) Total Creatine Kinase 74 U/L (26-308) General Appearance: well appearing, no apparent distress, alert Head: normocephalic EENT: PERRL/EOMI, normal ENT inspection Neck: supple Respiratory: normal breath sounds, no respiratory distress Cardiovascular: normal rate Gastrointestinal: normal inspection, non tender, soft, normal bowel sounds, non -distended Rectal: deferred Genitourinary: deferred Musculoskeletal: normal inspection, back normal Neurologic: normal inspection, alert, oriented x3, responsive Psychiatric: normal inspection, judgement/insight normal, memory normal Skin: normal inspection, normal color, no rash, warm/dry, palpation normal, well hydrated Lymphatic: normal inspection, no adenopathy Current Medications Current Medications Medications (Trade) Dose Ordered Sig/[place]oma Route PRN Reason Start Time Stop Time Status Last Admin Dose Admin Acetaminophen (Tylenol) 650 mg Q4H PRN ORAL fever 12/03/17 21:15 01/02/18 21:14 Al Hydroxide/Mg Hydroxide (Mylanta II) 30 ml Q6H PRN ORAL dyspepsia 12/03/17 21:15 01/02/18 21:14 Dextrose (Dextrose 50%) 25 ml Q30M PRN IV Hypoglycemia 12/03/17 21:15 01/02/18 21:14 Dextrose (Dextrose 50%) 50 ml Q30M PRN IV Hypoglycemia 12/03/17 21:15 01/02/18 21:14 Dextrose/Sodium Chloride 1,000 ml @ 75 mls/hr [id number] IV 12/04/17 10:03 01/02/18 10:02 12/04/17 10:24 Diphenhydramine HCl (Benadryl) 25 mg Q6H PRN ORAL Itching/Pruritis 12/03/17 21:15 01/02/18 21:14 Morphine Sulfate (Morphine Sulfate) 2 mg Q4H PRN IVP severe Pain (Pain Scale 7-10) 12/03/17 21:15 12/10/17 21:14 Nitroglycerin (Ntg) 0.4 mg Q5M X 3 DOSES PRN SL Prn Chest Pain 12/03/17 21:15 01/02/18 21:14 Ondansetron HCl (Zofran) 4 mg Q6H PRN IVP Nausea & Vomiting 12/03/17 21:15 01/02/18 21:14 Pantoprazole (Protonix) 40 mg BID IVP 12/04/17 09:00 01/03/18 08:59 12/04/17 08:05 Polyethylene Glycol (Miralax) 17 gm HSPRN PRN ORAL Constipation 12/03/17 21:15 01/02/18 21:14 Temazepam (Restoril) 15 mg HSPRN PRN ORAL Insomnia 12/03/17 21:15 12/10/17 21:14 GI: Plan Problems: (1) Gastrointestinal hemorrhage (2) Hx of GI malignancy (3) UGIB (upper gastrointestinal bleed) Plan EGD/colonoscopy scheduled tomorrow. - CLD now, NPO @ [place]. - hold all blood thinners prn transfusions ppi gtt fu labs will follow with additional recs post procedure Discussed with Dr. Hopkins. Thank you for this patient referral, we will follow. The patient was seen and examined at bedside and all new and available data was reviewed in the patients chart. I agree with the above findings, impression and plan. (Patient seen earlier today. Signature stamp does not reflect patient encounter time.). - MD Maday [facility] REGULATORY AFFAIRS ANALYST Dec 04, 2017 12:03
[2017-12-04] MEDS ORDERED: Pantoprazole 80 MG in NS 250 ML IV SCH (13:30)
--- NOTE | 2017-12-04 15:24 | Cardiology Report ---
APPROVED REPORT EKG Measurement Heart [id number] Normal sinus rhythm Normal ECG
[2017-12-04 15:48] VITALS: BP 101/59
[2017-12-04] MEDS ORDERED: Nulytely 4L ORAL SCH (16:00)
[2017-12-04] MEDS ORDERED: Bisacodyl EC 5mg tab ORAL SCH (16:00)
[2017-12-04] MEDS: Pantoprazole 80 MG in NS 250 ML IV SCH (18:24)
[2017-12-04 18:40] LABS: BASOPHILS % (AUTO) 1.2 % (0.0-2.0); EOSINOPHILS % (AUTO) 1.4 % (0.0-3.0); HEMATOCRIT 31.4 % (42.0-52.0); HEMOGLOBIN 10.6 G/DL (14.2-18.0); LYMPHOCYTES % (AUTO) 32.4 % (20.0-45.0); MEAN CORPUSCULAR VOLUME 89 FL (80-99); MONOCYTES % (AUTO) 5.5 % (1.0-10.0); NEUTROPHILS % (AUTO) 59.5 % (45.0-75.0); PLATELET COUNT 207 K/UL (150-450); RED BLOOD COUNT 3.53 M/UL (4.70-6.10); RED CELL DISTRIBUTION WIDTH 11.5 % (11.6-14.8); WHITE BLOOD COUNT 9.1 K/UL (4.8-10.8)
[2017-12-04 20:00] VITALS: BP 116/75
--- NOTE | 2017-12-04 22:15 | History and Physical Report ---
DATE OF ADMISSION: 12/03/2017 APPROXIMATE TIME SEEN: At 2 p.m. CONSULTANTS: 1. Ramy Pillai M.D. 2. Quang Causey M.D. 3. Cliff Hopkins M.D. 4. Yung Aaron M.D. 5. Lasha Thrasher M.D. CHIEF COMPLAINT: Rectal bleed, duodenal cancer history, leukocytosis. BRIEF HISTORY: This is a 72-year-old male, who lives at home, with history of duodenal cancer in 2012, status post surgery. The patient developed rectal bleed which was dark in nature. He was slightly dizzy, came to [facility], diagnosed with the above, and admitted to telemetry for further care. Currently, calm in bed, slightly weak, getting transfusion, no complaint otherwise. REVIEW OF SYSTEMS: No chest pain. No shortness of breath. No nausea, vomiting, or diarrhea. PAST MEDICAL HISTORY: Includes duodenal cancer. PAST SURGICAL HISTORY: Duodenal surgery, right hernia, and prostate surgery. ALLERGIES: Denies. MEDICATIONS: Include Fleet Enema, pantoprazole, bisacodyl, morphine, polyethylene glycol, Zofran, temazepam. SOCIAL HISTORY: No smoking. Occasional alcohol. No intravenous drug abuse. FAMILY HISTORY: Noncontributory. PHYSICAL EXAMINATION: GENERAL: Calm in bed, oriented x3, in no acute distress. VITAL SIGNS: Temperature is 98 degrees, pulse 77, respiratory rate 18, blood pressure 105/50. CARDIOVASCULAR: No murmur. LUNGS: Distant and clear. ABDOMEN: Bowel sounds positive. Nontender. Nondistended. EXTREMITIES: No cyanosis, clubbing, or edema. NEUROLOGIC: Cranial nerves II through XII are grossly intact. Deep tendon reflexes 2+/4. Muscle strength 5/5. LABORATORY DATA: Labs at this time show initial white count was 13 and now it is 8.1, hemoglobin was 10 and now hemoglobin and hematocrit is 8.8/26, otherwise CBC is normal. BMP shows chloride 110, BUN/creatinine 24/0.7. Albumin 2.4. INR is 1.0. Urinalysis, 1+ blood, 3+ glucose. Glucose 121. ASSESSMENT: Rectal bleed, history of duodenal cancer, leukocytosis which has improved, anemia. PLAN: Transfuse p.r.n., pain control, dietary followup, CBC and BMP in the morning, pending EGD and colonoscopy in the morning. We will continue to follow this patient. Kartik London D.O. DR: Андрей JOB#: [id number] CC:
[2017-12-04] MEDS ORDERED: Fleet's Enema 133ml RECTAL ONE (23:00)
[2017-12-05] VITALS (9 sets, daily range): BP systolic 103–149; BP diastolic 63–83
[2017-12-05] MEDS: Pantoprazole 80 MG in NS 250 ML IV SCH ×2 (04:02→14:17)
--- NOTE | 2017-12-05 06:44 | Anethesia Preoperative Eval ---
Anesthesia Pre-op PMH/ROS General Date of Evaluation: Dec 05, 2017 Time of Evaluation: 06:42 Anesthesiologist: rashmi ASA Score: ASA 3 Mallampati Score Class I : Soft palate, uvula, fauces, pillars visible Class II: Soft palate, uvula, fauces visible Class III: Soft palate, base of uvula visible Class IV: Only hard plate visible Mallampati Classification: Class II Surgeon: kim Diagnosis: ugib Surgical Procedure: egd/colonoscopy Anesthesia History: none Social History: smoking - former smoker Family History: no anesthesia problems Allergies: Coded Allergies: No Known Allergies (Unverified , 12/03/17) Medications: see eMAR Patient NPO?: Yes Past Medical History Gastrointestinal/Genitourinary: Reports: other - ugib, hx/o duodenal cancer Anesthesia Pre-op Phys. Exam Physician Exam Last Vital Signs Date Time Temp Pulse Resp B/P (MAP) Pulse Ox O2 Delivery O2 Flow Rate FiO2 12/05/17 04:00 66 12/05/17 04:00 98.1 18 115/65 (82) 98 98.1 12/04/17 21:00 Room Air Constitutional: NAD Neurologic: CN 2-12 intact Cardiovascular: RRR Respiratory: CTA Gastrointestinal: S/NT/ND Airway Exam Mallampati Score: Class II MO: full Neck: supple TMD: 2fb ROM: full Teeth: intact Anesthesia Pre-op A/P Labs Hematology Test 12/04/17 07:10 12/04/17 18:10 White Blood Count 8.1 K/UL (4.8-10.8) 9.1 K/UL (4.8-10.8) Red Blood Count 3.04 M/UL (4.70-6.10) L 3.53 M/UL (4.70-6.10) L Hemoglobin 8.8 G/DL (14.2-18.0) L 10.6 G/DL (14.2-18.0) L Hematocrit 26.4 % (42.0-52.0) L 31.4 % (42.0-52.0) L Mean Corpuscular Volume 87 FL (80-99) 89 FL (80-99) Mean Corpuscular Hemoglobin 29.0 PG (27.0-31.0) 30.1 PG (27.0-31.0) Mean Corpuscular Hemoglobin Concent 33.5 G/DL (32.0-36.0) 33.9 G/DL (32.0-36.0) Red Cell Distribution Width 11.4 % (11.6-14.8) L 11.5 % (11.6-14.8) L Platelet Count 187 K/UL (150-450) 207 K/UL (150-450) Mean Platelet Volume 6.8 FL (6.5-10.1) 6.7 FL (6.5-10.1) Neutrophils (%) (Auto) 68.0 % (45.0-75.0) 59.5 % (45.0-75.0) Lymphocytes (%) (Auto) 24.1 % (20.0-45.0) 32.4 % (20.0-45.0) Monocytes (%) (Auto) 5.8 % (1.0-10.0) 5.5 % (1.0-10.0) Eosinophils (%) (Auto) 1.2 % (0.0-3.0) 1.4 % (0.0-3.0) Basophils (%) (Auto) 0.9 % (0.0-2.0) 1.2 % (0.0-2.0) Differential Total Cells Counted 100 Neutrophils % (Manual) 69 % (45-75) Lymphocytes % (Manual) 25 % (20-45) Monocytes % (Manual) 5 % (1-10) Eosinophils % (Manual) 1 % (0-3) Basophils % (Manual) 0 % (0-2) Band Neutrophils 0 % (0-8) Platelet Estimate Adequate Platelet Morphology Normal Hypochromasia 2+ Anisocytosis 1+ Spherocytes 1+ Erythrocyte Sedimentation Rate 6 MM/HR (0-20) Reticulocyte Count 1.6 % (0.0-2.0) Coagulation Test 12/04/17 07:10 12/04/17 18:15 Prothrombin Time 10.9 SEC (9.30-11.50) 10.7 SEC (9.30-11.50) Prothromb Time International Ratio 1.0 (0.9-1.1) 1.0 (0.9-1.1) Activated Partial Thromboplast Time 26 SEC (23-33) Chemistry Test 12/04/17 07:10 12/04/17 08:00 Sodium Level 142 MMOL/L (136-145) Potassium Level 4.1 MMOL/L (3.5-5.1) Chloride Level 110 MMOL/L (98-107) H Carbon Dioxide Level 28 MMOL/L (21-32) Anion Gap 4 mmol/L (5-15) L Blood Urea Nitrogen 24 mg/dL (7-18) H Creatinine 0.7 MG/DL (0.55-1.30) Estimat Glomerular Filtration Rate mL/min (>60) Glucose Level 121 MG/DL (74-106) H Calcium Level 7.5 MG/DL (8.5-10.1) L Phosphorus Level 2.9 MG/DL (2.5-4.9) Magnesium Level 1.9 MG/DL (1.8-2.4) Iron Level 48 ug/dL (50-175) L Total Iron Binding Capacity 210 ug/dL (250-450) L Percent Iron Saturation 23 % (15-50) Unsaturated Iron Binding 162 ug/dL (112-346) Ferritin 69 NG/ML (8-388) Total Bilirubin 0.1 MG/DL (0.2-1.0) L Aspartate Amino Transf (AST/SGOT) 18 U/L (15-37) Alanine Aminotransferase (ALT/SGPT) 30 U/L (12-78) Alkaline Phosphatase 63 U/L (46-116) Lactate Dehydrogenase 118 U/L (81-234) C-Reactive Protein, Quantitative < 0.4 mg/dL (0.00-0.90) Total Protein 4.7 G/DL (6.4-8.2) L Albumin 2.4 G/DL (3.4-5.0) L Globulin 2.3 g/dL Albumin/Globulin Ratio 1.0 (1.0-2.7) Amylase Level 39 U/L (25-115) Carcinoembryonic Antigen Pending Vitamin B12 Level 762 PG/ML (193-986) Folate 17.7 NG/ML (8.6-58.9) Uric Acid 3.0 MG/DL (2.6-7.2) Total Creatine Kinase 74 U/L (26-308) Risk Assessment & Plan Assessment: [email or web address] Plan: mac Status Change Before Surgery: No Pre-Antibiotics Drug: na Daisha Licona MD Dec 05, 2017 06:44
[2017-12-05] MEDS ORDERED: DiphenhydrAMINE 50mg/ml Inj IVP PRN (06:45)
[2017-12-05] MEDS ORDERED: Atropine Inj 1mg/10ml Syr IV PRN (06:45)
[2017-12-05] MEDS ORDERED: Midazolam 2mg/2ml Inj IVP PRN (06:45)
[2017-12-05] MEDS ORDERED: fentaNYL 100 mcg/2 mL IV PRN (06:45)
[2017-12-05 07:40] LABS: HEMATOCRIT 27.6 % (42.0-52.0); HEMOGLOBIN 9.6 G/DL (14.2-18.0); MEAN CORPUSCULAR VOLUME 86 FL (80-99); PLATELET COUNT 173 K/UL (150-450); RED BLOOD COUNT 3.21 M/UL (4.70-6.10); RED CELL DISTRIBUTION WIDTH 11.2 % (11.6-14.8); WHITE BLOOD COUNT 5.5 K/UL (4.8-10.8)
[2017-12-05 07:46] LABS: INR 1.1 (0.9-1.1)
[2017-12-05 07:53] LABS: ANION GAP 5 mmol/L (5-15); BLOOD UREA NITROGEN 9 mg/dL (7-18); CALCIUM 7.9 MG/DL (8.5-10.1); CARBON DIOXIDE 27 MMOL/L (21-32); CHLORIDE 113 MMOL/L (98-107); CREATININE 0.7 MG/DL (0.55-1.30); POTASSIUM 3.6 MMOL/L (3.5-5.1); SODIUM 145 MMOL/L (136-145)
[2017-12-05 08:08] LABS: LACTATE DEHYDROGENASE 153 U/L (81-234)
[2017-12-05 08:22] LABS: % IRON SATURATION 46 % (15-50); IRON 109 ug/dL (50-175); TOTAL IRON BINDING CAPACITY 238 ug/dL (250-450)
--- NOTE | 2017-12-05 09:11 | General Progress Note ---
Assessment/Plan Problem List: (1) UGIB (upper gastrointestinal bleed) ICD Codes: K92.2 - Gastrointestinal hemorrhage, unspecified SNOMED: 87943877 (2) Hx of GI malignancy ICD Codes: Z85.00 - Personal history of malignant neoplasm of unspecified digestive organ SNOMED: 019352316, 125633634 (3) Gastrointestinal hemorrhage ICD Codes: K92.2 - Gastrointestinal hemorrhage, unspecified SNOMED: 19317887, 252140591 Assessment/Plan plan EGD and colonoscopy for today Subjective ROS Limited/Unobtainable: Yes Allergies: Coded Allergies: No Known Allergies (Unverified , 12/03/17) Objective Last 24 Hour Vital Signs Date Time Temp Pulse Resp B/P (MAP) Pulse Ox O2 Delivery O2 Flow Rate FiO2 12/05/17 08:25 Room Air 12/05/17 07:52 98.1 64 18 127/64 (85) 98 98.1 12/05/17 04:00 66 12/05/17 04:00 98.1 62 18 115/65 (82) 98 98.1 12/05/17 00:00 62 12/05/17 00:00 98.0 64 20 103/63 (76) 95 98.0 12/04/17 21:00 Room Air 12/04/17 20:00 97.9 65 18 116/75 (89) 99 97.9 12/04/17 20:00 64 12/04/17 16:00 62 12/04/17 15:48 97.5 64 18 101/59 (73) 98 97.5 12/04/17 12:00 65 12/04/17 11:22 98.3 77 18 105/50 (68) 99 98.3 Intake and Output 12/04/17 12/05/17 19:00 07:00 Intake Total 852.5 ml 1198 ml Balance 852.5 ml 1198 ml Intake Oral 240 ml IV Total 612.5 ml 1198 ml # Voids 3 5 # Bowel Movements 1 15 Laboratory Tests 12/04/17 13:27: Stool Occult Blood [Pending] 12/04/17 18:10: White Blood Count 9.1, Red Blood Count 3.53L, Hemoglobin 10.6L, Hematocrit 31.4L , Mean Corpuscular Volume 89, Mean Corpuscular Hemoglobin 30.1, Mean Corpuscular Hemoglobin Concent 33.9, Red Cell Distribution Width 11.5L, Platelet Count 207, Mean Platelet Volume 6.7, Neutrophils (%) (Auto) 59.5, Lymphocytes (%) (Auto) 32.4, Monocytes (%) (Auto) 5.5, Eosinophils (%) (Auto) 1.4, Basophils (%) (Auto) 1.2 12/04/17 18:15: Prothrombin Time 10.7, Prothromb Time International Ratio 1.0 12/05/17 05:54: White Blood Count 5.5, Red Blood Count 3.21L, Hemoglobin 9.6L, Hematocrit 27.6L , Mean Corpuscular Volume 86, Mean Corpuscular Hemoglobin 29.9, Mean Corpuscular Hemoglobin Concent 34.7, Red Cell Distribution Width 11.2L, Platelet Count 173, Mean Platelet Volume 7.0, Neutrophils (%) (Auto) , Lymphocytes (%) (Auto) , Monocytes (%) (Auto) , Eosinophils (%) (Auto) , Basophils (%) (Auto) , Prothrombin Time 11.2, Prothromb Time International Ratio 1.1, Differential Total Cells Counted 100, Neutrophils % (Manual) 65, Lymphocytes % (Manual) 28, Monocytes % (Manual) 6, Eosinophils % (Manual) 1, Basophils % (Manual) 0, Band Neutrophils 0, Platelet Estimate Adequate, Platelet Morphology Normal, Red Blood Cell Morphology Normal, Erythrocyte Sedimentation Rate 5, Reticulocyte Count 1.7, Activated Partial Thromboplast Time 27, Sodium Level 145, Potassium Level 3.6, Chloride Level 113H, Carbon Dioxide Level 27, Anion Gap 5, Blood Urea Nitrogen 9, Creatinine 0.7, Estimat Glomerular Filtration Rate , Glucose Level 113H, Calcium Level 7.9L, Iron Level 109, Total Iron Binding Capacity 238L, Percent Iron Saturation 46, Unsaturated Iron Binding 129, Lactate Dehydrogenase 153, Carcinoembryonic Antigen [Pending] , Vitamin B12 Level 861, Folate 18.5 Height (Feet): 5 Height (Inches): 5.00 Weight (Pounds): 131 General Appearance: alert EENT: normal ENT inspection Neck: supple Cardiovascular: normal rate Respiratory/Chest: decreased breath sounds Abdomen: normal bowel sounds, non tender, soft Extremities: non-tender Cliff Hopkins MD Dec 05, 2017 09:11
[2017-12-05] MEDS ORDERED: Lidocaine 1% MPF 10mg/ml 5ml ONE (09:30)
[2017-12-05] MEDS ORDERED: Propofol 200mg/20ml IV ONE (09:30)
[2017-12-05] MEDS ORDERED: NS 500ML IVPB ONE (09:35)
--- NOTE | 2017-12-05 09:37 | Pre-Procedure Note/Attestation ---
Pre-Procedure Note/Attestation Complete Prior to Procedure Planned Procedure: not applicable Procedure Narrative: esophagogastroduodenoscopy and colonoscopy Indications for Procedure Pre-Operative Diagnosis: gib Attestation I attest that I discussed the nature of the procedure; its benefits; risks and complications; and alternatives (and the risks and benefits of such alternatives ), prior to the procedure, with the patient (or the patient's legal senior patient account representative). I attest that, if there was a reasonable possibility of needing a blood transfusion, the patient (or the patient's legal senior patient account representative) was given the [facility] standardized written summary, pursuant to the Jatinder Sb Blood Safety Act ([place] Health and Safety Code # 1645, as amended). I attest that I re-evaluated the patient just prior to the surgery and that there has been no change in the patient's H&P, except as documented below: Cliff Hopkins MD Dec 05, 2017 09:37
--- NOTE | 2017-12-05 10:03 | Endoscopy Procedure Note ---
Endoscopy Procedure Note General Indication for Procedure: gib Procedures Performed: EGD, colonoscopy Operative Findings/Diagnosis: anestemosis ulcer, one colon polyp Specimen: yes Pt Tolerated Procedure Well: Yes Estimated Blood Loss: none Anesthesia Anesthesiologist: renita regalado Anesthesia: MAC Inserted Devices Implant(s) used?: No Quality Quality of Bowel Preparation: Good Did scope reach the cecum?: Yes GI Core Measures 50 yrs or older w/o bx or poly: Not Applicable 10yrs. F/U not recommended: Not Applicable Cliff Hopkins MD Dec 05, 2017 10:03
--- NOTE | 2017-12-05 11:15 | Procedure Note ---
DATE OF PROCEDURE: 12/05/2017 SURGEON: Cliff Hopkins M.D. ANESTHESIOLOGIST: Dr. Pérez. REFERRING PHYSICIAN: Kartik London D.O. PROCEDURE: Upper endoscopy with biopsy and hemostasis and then colonoscopy with biopsy. ANESTHESIA: Per Dr. Pérez. INSTRUMENT: Olympus adult flexible upper endoscope and colonoscope. INDICATION: GI bleeding. The procedure, risks, benefits, and possible consequences, including hemorrhage, aspiration, perforation and infection, and alternative treatments, were explained to the patient/legal guardian by Dr. Cliff Hopkins and the patient/legal guardian understood and accepted these risks. DESCRIPTION OF PROCEDURE: After informed consent was obtained and the patient was adequately sedated, Olympus upper endoscope was advanced from the mouth into the esophagus, subsequently into the stomach, and then into anastomosis. 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 There was evidence of a small ulceration at the anastomosis with a little bit blood, most probably the source of bleeding. At this time, we placed a small clip on this ulcer, which successfully stopped the bleeding. Then, we pulled the scope back into the stomach and random biopsy from antrum and body was obtained to rule out H. pylori infection. At this time, the upper endoscope was retrieved. The patient was turned over for colonoscopy. First, rectal exam was performed, which was normal. Then, the scope was advanced from the rectum into the cecum and then subsequently into the terminal ileum. Quality of prep was very good. The patient had a diminutive polyp in the transverse colon, removed with the cold biopsy forceps technique. The rest of the colonic examination grossly looked within normal limits. SUMMARY OF FINDINGS: 1. Anastomotic ulcer, status post hemostasis with 1 clip. 2. Gastritis, status post biopsy. 3. One colonic polyp removed, see above for details. RECOMMENDATIONS: 1. Follow up biopsy results and treat accordingly. 2. The patient to be on PPI and Carafate. 3. Advance diet. 4. Repeat colonoscopy in 5 years. I want to thank Dr. Kartik London for this kind referral. Cliff Hopkins M.D. DR: Tia JOB#: [id number] CC: Kartik London D.O.
--- NOTE | 2017-12-05 11:58 | Pulmonology Progress Note ---
Assessment/Plan Problems: (1) Hx of GI malignancy (2) Gastrointestinal hemorrhage (3) UGIB (upper gastrointestinal bleed) Assessment/Plan h/h stable just one unit of prbc on dec 04 med/surg dc iv fluids on Carafate and H2 blockers dc planning soon Subjective ROS Limited/Unobtainable: No Interval Events: upper and lower endoscopy done Constitutional: Reports: no symptoms HEENT: Repors: no symptoms Respiratory: Reports: no symptoms Cardiovascular: Reports: no symptoms Allergies: Coded Allergies: No Known Allergies (Unverified , 12/03/17) Objective Last 24 Hour Vital Signs Date Time Temp Pulse Resp B/P (MAP) Pulse Ox O2 Delivery O2 Flow Rate FiO2 12/05/17 10:28 98.2 53 18 125/77 99 Room Air 98.2 12/05/17 10:13 56 18 104/77 100 Nasal Cannula 2 12/05/17 10:08 57 18 128/76 100 Nasal Cannula 2 12/05/17 10:03 98.5 70 18 124/82 100 Nasal Cannula 2 98.5 12/05/17 08:25 Room Air 12/05/17 07:52 98.1 64 18 127/64 (85) 98 98.1 12/05/17 07:51 63 12/05/17 04:00 66 12/05/17 04:00 98.1 62 18 115/65 (82) 98 98.1 12/05/17 00:00 62 12/05/17 00:00 98.0 64 20 103/63 (76) 95 98.0 12/04/17 21:00 Room Air 12/04/17 20:00 97.9 65 18 116/75 (89) 99 97.9 12/04/17 20:00 64 12/04/17 16:00 62 12/04/17 15:48 97.5 64 18 101/59 (73) 98 97.5 12/04/17 12:00 65 Intake and Output 12/04/17 12/05/17 19:00 07:00 Intake Total 852.5 ml 1198 ml Balance 852.5 ml 1198 ml Intake Oral 240 ml IV Total 612.5 ml 1198 ml # Voids 3 5 # Bowel Movements 1 15 General Appearance: WD/WN HEENT: normocephalic Respiratory/Chest: chest wall non-tender, lungs clear Cardiovascular: normal peripheral pulses, normal rate Abdomen: normal bowel sounds, soft, non tender Genitourinary: normal external genitalia Extremities: no cyanosis Skin: no rash Neurologic/Psychiatric: car escort II-XII grossly normal Lymphatic: no neck adenopathy Laboratory Tests 12/04/17 13:27: Stool Occult Blood Negative 12/04/17 18:10: White Blood Count 9.1, Red Blood Count 3.53L, Hemoglobin 10.6L, Hematocrit 31.4L , Mean Corpuscular Volume 89, Mean Corpuscular Hemoglobin 30.1, Mean Corpuscular Hemoglobin Concent 33.9, Red Cell Distribution Width 11.5L, Platelet Count 207, Mean Platelet Volume 6.7, Neutrophils (%) (Auto) 59.5, Lymphocytes (%) (Auto) 32.4, Monocytes (%) (Auto) 5.5, Eosinophils (%) (Auto) 1.4, Basophils (%) (Auto) 1.2 12/04/17 18:15: Prothrombin Time 10.7, Prothromb Time International Ratio 1.0 12/05/17 05:54: White Blood Count 5.5, Red Blood Count 3.21L, Hemoglobin 9.6L, Hematocrit 27.6L , Mean Corpuscular Volume 86, Mean Corpuscular Hemoglobin 29.9, Mean Corpuscular Hemoglobin Concent 34.7, Red Cell Distribution Width 11.2L, Platelet Count 173, Mean Platelet Volume 7.0, Neutrophils (%) (Auto) , Lymphocytes (%) (Auto) , Monocytes (%) (Auto) , Eosinophils (%) (Auto) , Basophils (%) (Auto) , Prothrombin Time 11.2, Prothromb Time International Ratio 1.1, Differential Total Cells Counted 100, Neutrophils % (Manual) 65, Lymphocytes % (Manual) 28, Monocytes % (Manual) 6, Eosinophils % (Manual) 1, Basophils % (Manual) 0, Band Neutrophils 0, Platelet Estimate Adequate, Platelet Morphology Normal, Red Blood Cell Morphology Normal, Erythrocyte Sedimentation Rate 5, Reticulocyte Count 1.7, Activated Partial Thromboplast Time 27, Sodium Level 145, Potassium Level 3.6, Chloride Level 113H, Carbon Dioxide Level 27, Anion Gap 5, Blood Urea Nitrogen 9, Creatinine 0.7, Estimat Glomerular Filtration Rate , Glucose Level 113H, Calcium Level 7.9L, Iron Level 109, Total Iron Binding Capacity 238L, Percent Iron Saturation 46, Unsaturated Iron Binding 129, Lactate Dehydrogenase 153, Carcinoembryonic Antigen [Pending] , Vitamin B12 Level 861, Folate 18.5 Current Medications Medications (Trade) Dose Ordered Sig/Paloma Route PRN Reason Start Time Stop Time Status Last Admin Dose Admin Acetaminophen (Tylenol) 650 mg Q4H PRN ORAL fever 12/03/17 21:15 01/02/18 21:14 Al Hydroxide/Mg Hydroxide (Mylanta II) 30 ml Q6H PRN ORAL dyspepsia 12/03/17 21:15 01/02/18 21:14 Al Hydroxide/Mg Hydroxide (Mylanta) 15 ml Q1H PRN ORAL gi upset 12/05/17 06:45 12/05/17 15:00 Atropine Sulfate (Atropine) 0.5 mg Q5M PRN IV bpm less than 45 12/05/17 06:45 12/05/17 15:00 Dextrose (Dextrose 50%) 25 ml Q30M PRN IV Hypoglycemia 12/03/17 21:15 01/02/18 21:14 Dextrose (Dextrose 50%) 50 ml Q30M PRN IV Hypoglycemia 12/03/17 21:15 01/02/18 21:14 Dextrose/Sodium Chloride 1,000 ml @ 75 mls/hr [id number] IV 12/04/17 10:03 01/02/18 10:02 12/04/17 23:01 Diphenhydramine HCl (Benadryl) 25 mg Q15M PRN IVP Itching 12/05/17 06:45 12/05/17 15:00 Diphenhydramine HCl (Benadryl) 25 mg Q6H PRN ORAL Itching/Pruritis 12/03/17 21:15 01/02/18 21:14 Fentanyl Citrate (Sublimaze 100 mcg/2 mL) 25 mcg Q10M PRN IV Moderate Pain (Pain Scale 4-6) 12/05/17 06:45 12/05/17 15:00 Ferrous Sulfate (Feosol) 325 mg BID ORAL 12/05/17 09:00 01/04/18 08:59 Hydralazine HCl (Apresoline) 5 mg Q30M PRN IV SBP>160 OR___/DBP>90 OR___ 12/05/17 06:45 12/05/17 15:00 Midazolam HCl (Versed 2mg/2ml vial) 1 mg Q15M PRN IVP For Anxiety 12/05/17 06:45 12/05/17 15:00 Morphine Sulfate (Morphine Sulfate) 2 mg Q4H PRN IVP severe Pain (Pain Scale 7-10) 12/03/17 21:15 12/10/17 21:14 Nitroglycerin (Ntg) 0.4 mg Q5M X 3 DOSES PRN SL Prn Chest Pain 12/03/17 21:15 01/02/18 21:14 Ondansetron HCl (Zofran) 4 mg Q1H PRN IVP Nausea & Vomiting 12/05/17 06:45 12/05/17 15:00 Ondansetron HCl (Zofran) 4 mg Q6H PRN IVP Nausea & Vomiting 12/03/17 21:15 01/02/18 21:14 Pantoprazole 80 mg/Sodium Chloride 250 ml @ 25 mls/hr Q10H IV 12/04/17 18:00 01/03/18 17:59 12/05/17 04:02 Polyethylene Glycol (Miralax) 17 gm HSPRN PRN ORAL Constipation 12/03/17 21:15 01/02/18 21:14 Sucralfate (Carafate) 1 gm FOUR TIMES A DAY ORAL 12/05/17 13:00 01/04/18 12:59 Temazepam (Restoril) 15 mg HSPRN PRN ORAL Insomnia 12/03/17 21:15 12/10/17 21:14 Quang Causey MD Dec 05, 2017 11:58
--- NOTE | 2017-12-05 12:14 | Infectious Diseases Prog Note ---
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 Will continue to follow along with you. Discussed with RN. Subjective Allergies: Coded Allergies: No Known Allergies (Unverified , 12/03/17) Subjective afebrile no leukcoytosis off abx s/p EGD and colo today Objective Vital Signs Last 24 Hour Vital Signs Date Time Temp Pulse Resp B/P (MAP) Pulse Ox O2 Delivery O2 Flow Rate FiO2 12/05/17 10:28 98.2 53 18 125/77 99 Room Air 98.2 12/05/17 10:13 56 18 104/77 100 Nasal Cannula 2 12/05/17 10:08 57 18 128/76 100 Nasal Cannula 2 12/05/17 10:03 98.5 70 18 124/82 100 Nasal Cannula 2 98.5 12/05/17 08:25 Room Air 12/05/17 07:52 98.1 64 18 127/64 (85) 98 98.1 12/05/17 07:51 63 12/05/17 04:00 66 12/05/17 04:00 98.1 62 18 115/65 (82) 98 98.1 12/05/17 00:00 62 12/05/17 00:00 98.0 64 20 103/63 (76) 95 98.0 12/04/17 21:00 Room Air 12/04/17 20:00 97.9 65 18 116/75 (89) 99 97.9 12/04/17 20:00 64 12/04/17 16:00 62 12/04/17 15:48 97.5 64 18 101/59 (73) 98 97.5 Height (Feet): 5 Height (Inches): 5.00 Weight (Pounds): 131 Objective General Appearance: normal inspection, well appearing Head: atraumatic ENT: normal ENT inspection, hearing grossly normal Neck: normal inspection, full range of motion Respiratory: normal inspection, lungs clear, normal breath sounds Cardiovascular regular rate, rhythm Gastrointestinal: normal inspection, BS+ Genitourinary: no CVA tenderness Musculoskeletal: normal inspection, back normal Skin: normal inspection, normal color, no rash Laboratory Tests Test 12/04/17 13:27 12/04/17 18:10 12/04/17 18:15 12/05/17 05:54 Stool Occult Blood Negative (NEGATIVE) White Blood Count 9.1 K/UL (4.8-10.8) 5.5 K/UL (4.8-10.8) Red Blood Count 3.53 M/UL (4.70-6.10) L 3.21 M/UL (4.70-6.10) L Hemoglobin 10.6 G/DL (14.2-18.0) L 9.6 G/DL (14.2-18.0) L Hematocrit 31.4 % (42.0-52.0) L 27.6 % (42.0-52.0) L Mean Corpuscular Volume 89 FL (80-99) 86 FL (80-99) Mean Corpuscular Hemoglobin 30.1 PG (27.0-31.0) 29.9 PG (27.0-31.0) Mean Corpuscular Hemoglobin Concent 33.9 G/DL (32.0-36.0) 34.7 G/DL (32.0-36.0) Red Cell Distribution Width 11.5 % (11.6-14.8) L 11.2 % (11.6-14.8) L Platelet Count 207 K/UL (150-450) 173 K/UL (150-450) Mean Platelet Volume 6.7 FL (6.5-10.1) 7.0 FL (6.5-10.1) Neutrophils (%) (Auto) 59.5 % (45.0-75.0) % (45.0-75.0) Lymphocytes (%) (Auto) 32.4 % (20.0-45.0) % (20.0-45.0) Monocytes (%) (Auto) 5.5 % (1.0-10.0) % (1.0-10.0) Eosinophils (%) (Auto) 1.4 % (0.0-3.0) % (0.0-3.0) Basophils (%) (Auto) 1.2 % (0.0-2.0) % (0.0-2.0) Prothrombin Time 10.7 SEC (9.30-11.50) 11.2 SEC (9.30-11.50) Prothromb Time International Ratio 1.0 (0.9-1.1) 1.1 (0.9-1.1) Differential Total Cells Counted 100 Neutrophils % (Manual) 65 % (45-75) Lymphocytes % (Manual) 28 % (20-45) Monocytes % (Manual) 6 % (1-10) Eosinophils % (Manual) 1 % (0-3) Basophils % (Manual) 0 % (0-2) Band Neutrophils 0 % (0-8) Platelet Estimate Adequate Platelet Morphology Normal Red Blood Cell Morphology Normal Erythrocyte Sedimentation Rate 5 MM/HR (0-20) Reticulocyte Count 1.7 % (0.0-2.0) Activated Partial Thromboplast Time 27 SEC (23-33) Sodium Level 145 MMOL/L (136-145) Potassium Level 3.6 MMOL/L (3.5-5.1) Chloride Level 113 MMOL/L (98-107) H Carbon Dioxide Level 27 MMOL/L (21-32) Anion Gap 5 mmol/L (5-15) Blood Urea Nitrogen 9 mg/dL (7-18) Creatinine 0.7 MG/DL (0.55-1.30) Estimat Glomerular Filtration Rate mL/min (>60) Glucose Level 113 MG/DL (74-106) H Calcium Level 7.9 MG/DL (8.5-10.1) L Iron Level 109 ug/dL (50-175) Total Iron Binding Capacity 238 ug/dL (250-450) L Percent Iron Saturation 46 % (15-50) Unsaturated Iron Binding 129 ug/dL (112-346) Lactate Dehydrogenase 153 U/L (81-234) Carcinoembryonic Antigen Pending Vitamin B12 Level 861 PG/ML (193-986) Folate 18.5 NG/ML (8.6-58.9) Current Medications Medications (Trade) Dose Ordered Sig/[place]oma Route PRN Reason Start Time Stop Time Status Last Admin Dose Admin Acetaminophen (Tylenol) 650 mg Q4H PRN ORAL fever 12/03/17 21:15 01/02/18 21:14 Al Hydroxide/Mg Hydroxide (Mylanta II) 30 ml Q6H PRN ORAL dyspepsia 12/03/17 21:15 01/02/18 21:14 Al Hydroxide/Mg Hydroxide (Mylanta) 15 ml Q1H PRN ORAL gi upset 12/05/17 06:45 12/05/17 15:00 Atropine Sulfate (Atropine) 0.5 mg Q5M PRN IV bpm less than 45 12/05/17 06:45 12/05/17 15:00 Dextrose (Dextrose 50%) 25 ml Q30M PRN IV Hypoglycemia 12/03/17 21:15 01/02/18 21:14 Dextrose (Dextrose 50%) 50 ml Q30M PRN IV Hypoglycemia 12/03/17 21:15 01/02/18 21:14 Dextrose/Sodium Chloride 1,000 ml @ 75 mls/hr [id number] IV 12/04/17 10:03 01/02/18 10:02 12/04/17 23:01 Diphenhydramine HCl (Benadryl) 25 mg Q15M PRN IVP Itching 12/05/17 06:45 12/05/17 15:00 Diphenhydramine HCl (Benadryl) 25 mg Q6H PRN ORAL Itching/Pruritis 12/03/17 21:15 01/02/18 21:14 Fentanyl Citrate (Sublimaze 100 mcg/2 mL) 25 mcg Q10M PRN IV Moderate Pain (Pain Scale 4-6) 12/05/17 06:45 12/05/17 15:00 Ferrous Sulfate (Feosol) 325 mg BID ORAL 12/05/17 09:00 01/04/18 08:59 Hydralazine HCl (Apresoline) 5 mg Q30M PRN IV SBP>160 OR___/DBP>90 OR___ 12/05/17 06:45 12/05/17 15:00 Midazolam HCl (Versed 2mg/2ml vial) 1 mg Q15M PRN IVP For Anxiety 12/05/17 06:45 12/05/17 15:00 Morphine Sulfate (Morphine Sulfate) 2 mg Q4H PRN IVP severe Pain (Pain Scale 7-10) 12/03/17 21:15 12/10/17 21:14 Nitroglycerin (Ntg) 0.4 mg Q5M X 3 DOSES PRN SL Prn Chest Pain 12/03/17 21:15 01/02/18 21:14 Ondansetron HCl (Zofran) 4 mg Q1H PRN IVP Nausea & Vomiting 12/05/17 06:45 12/05/17 15:00 Ondansetron HCl (Zofran) 4 mg Q6H PRN IVP Nausea & Vomiting 12/03/17 21:15 01/02/18 21:14 Pantoprazole 80 mg/Sodium Chloride 250 ml @ 25 mls/hr Q10H IV 12/04/17 18:00 01/03/18 17:59 12/05/17 04:02 Polyethylene Glycol (Miralax) 17 gm HSPRN PRN ORAL Constipation 12/03/17 21:15 01/02/18 21:14 Sucralfate (Carafate) 1 gm FOUR TIMES A DAY ORAL 12/05/17 13:00 01/04/18 12:59 Temazepam (Restoril) 15 mg HSPRN PRN ORAL Insomnia 12/03/17 21:15 12/10/17 21:14 Tessa Luna M.D. Dec 05, 2017 12:14
--- NOTE | 2017-12-05 12:43 | Immediate Post-Op Evaluation ---
Immediate Post-Op Evalulation Immediate Post-Op Evalulation Date of Evaluation: Dec 05, 2017 Time of Evaluation: 10:15 IV Fluids: 200ml 0.9ns Blood Products: none Estimated Blood Loss: negligible Blood Pressure Systolic: 124 Blood Pressure Diastolic: 82 Pulse Rate: 70 Respiratory Rate: 18 O2 Sat by Pulse Oximetry: 100 Temperature (Fahrenheit): 98.5 Pain Score (1-10): 0 Nausea: No Vomiting: No Complications none Patient Status: awake, reacts, patent Hydration Status: adequate Drug: Daisha Enamorado MD Dec 05, 2017 12:43
--- NOTE | 2017-12-05 12:45 | 48 Hour Post Anesthesia Eval ---
Post Anesthesia Evaluation Procedure: egd/colonoscopy/bx Date of Evaluation: Dec 05, 2017 Time of Evaluation: 10:17 Blood Pressure Systolic: 130 0: 84 Pulse Rate: 70 Respiratory Rate: 18 Temperature (Fahrenheit): 98.5 O2 Sat by Pulse Oximetry: 100 Airway: patent Nausea: No Vomiting: No Pain Intensity: 0 Hydration Status: adequate Cardiopulmonary Status: stable Mental Status/LOC: patient returned to baseline Post-Anesthesia Complications: none Follow-up care needed: N/A Daisha Licona MD Dec 05, 2017 12:45
[2017-12-05] MEDS: Sucralfate 1gm tab ORAL SCH ×2 (12:49→17:01)
[2017-12-05] MEDS: D5NS 1,000 ML IV SCH (12:49)
[2017-12-05] MEDS ORDERED: CARAFATE1 G1 ORAL (13:40)
--- NOTE | 2017-12-05 14:01 | General Progress Note ---
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 --> further chemo as per primary oncologist at [facility] --> cea has been ordered # Anemia of iron deficiency. --> Cont on po iron # Anemia due to Gi bleed --> trend h/h and as per gi --> may need endoscopy --> PPI bid has been ordered --> anemia panel has been reviewed. Will trend CBC as needed. # Leukocytosis likely 2/2 malignancy v reactive process --> r/o infection and peripheral smear reviewed # FTT likely due to malignancy --> cea has been ordered - PENDING # Increased abdominal pain. likely related to malignancy v other cause --> gi recs appreciated Greatly appreciate consultation! Subjective Date patient seen: Dec 05, 2017 Hematologic/Lymphatic: Reports: anemia Allergies: Coded Allergies: No Known Allergies (Unverified , 12/03/17) All Systems: reviewed and negative except above Subjective Pt awake and alert. Pt states he wants to go home. H/H stable. ANASTOMOSIS ULCER FOUND WITHOUT ACTIVE BLEED AND ENDOCLIP PLACED X1. Objective Last 24 Hour Vital Signs Date Time Temp Pulse Resp B/P (MAP) Pulse Ox O2 Delivery O2 Flow Rate FiO2 12/05/17 12:45 209.3 70 18 100 12/05/17 12:43 209.3 70 18 100 12/05/17 12:25 98.1 61 18 143/83 (103) 98 98.1 12/05/17 12:12 60 12/05/17 10:28 98.2 53 18 125/77 99 Room Air 98.2 12/05/17 10:13 56 18 104/77 100 Nasal Cannula 2 12/05/17 10:08 57 18 128/76 100 Nasal Cannula 2 12/05/17 10:03 98.5 70 18 124/82 100 Nasal Cannula 2 98.5 12/05/17 08:25 Room Air 12/05/17 07:52 98.1 64 18 127/64 (85) 98 98.1 12/05/17 07:51 63 12/05/17 04:00 66 12/05/17 04:00 98.1 62 18 115/65 (82) 98 98.1 12/05/17 00:00 62 12/05/17 00:00 98.0 64 20 103/63 (76) 95 98.0 12/04/17 21:00 Room Air 12/04/17 20:00 97.9 65 18 116/75 (89) 99 97.9 12/04/17 20:00 64 12/04/17 16:00 62 12/04/17 15:48 97.5 64 18 101/59 (73) 98 97.5 Intake and Output 12/04/17 12/05/17 19:00 07:00 Intake Total 852.5 ml 1198 ml Balance 852.5 ml 1198 ml Intake Oral 240 ml IV Total 612.5 ml 1198 ml # Voids 3 5 # Bowel Movements 1 15 Laboratory Tests 12/04/17 18:10: White Blood Count 9.1, Red Blood Count 3.53L, Hemoglobin 10.6L, Hematocrit 31.4L , Mean Corpuscular Volume 89, Mean Corpuscular Hemoglobin 30.1, Mean Corpuscular Hemoglobin Concent 33.9, Red Cell Distribution Width 11.5L, Platelet Count 207, Mean Platelet Volume 6.7, Neutrophils (%) (Auto) 59.5, Lymphocytes (%) (Auto) 32.4, Monocytes (%) (Auto) 5.5, Eosinophils (%) (Auto) 1.4, Basophils (%) (Auto) 1.2 12/04/17 18:15: Prothrombin Time 10.7, Prothromb Time International Ratio 1.0 12/05/17 05:54: White Blood Count 5.5, Red Blood Count 3.21L, Hemoglobin 9.6L, Hematocrit 27.6L , Mean Corpuscular Volume 86, Mean Corpuscular Hemoglobin 29.9, Mean Corpuscular Hemoglobin Concent 34.7, Red Cell Distribution Width 11.2L, Platelet Count 173, Mean Platelet Volume 7.0, Neutrophils (%) (Auto) , Lymphocytes (%) (Auto) , Monocytes (%) (Auto) , Eosinophils (%) (Auto) , Basophils (%) (Auto) , Prothrombin Time 11.2, Prothromb Time International Ratio 1.1, Differential Total Cells Counted 100, Neutrophils % (Manual) 65, Lymphocytes % (Manual) 28, Monocytes % (Manual) 6, Eosinophils % (Manual) 1, Basophils % (Manual) 0, Band Neutrophils 0, Other Cell Type , Platelet Estimate Adequate, Platelet Morphology Normal, Red Blood Cell Morphology Normal, Erythrocyte Sedimentation Rate 5, Reticulocyte Count 1.7, Activated Partial Thromboplast Time 27, Sodium Level 145, Potassium Level 3.6, Chloride Level 113H , Carbon Dioxide Level 27, Anion Gap 5, Blood Urea Nitrogen 9, Creatinine 0.7, Estimat Glomerular Filtration Rate , Glucose Level 113H, Calcium Level 7.9L, Iron Level 109, Total Iron Binding Capacity 238L, Percent Iron Saturation 46, Unsaturated Iron Binding 129, Lactate Dehydrogenase 153, Carcinoembryonic Antigen [Pending], Vitamin B12 Level 861, Folate 18.5 Height (Feet): 5 Height (Inches): 5.00 Weight (Pounds): 131 General Appearance: no apparent distress, alert EENT: PERRL/EOMI Neck: normal alignment Cardiovascular: normal peripheral pulses Respiratory/Chest: no respiratory distress Abdomen: tender Ramy Pillai MD Dec 05, 2017 14:01
--- NOTE | 2017-12-05 14:33 | General Progress Note ---
Assessment/Plan Problem List: (1) Gastrointestinal hemorrhage ICD Codes: K92.2 - Gastrointestinal hemorrhage, unspecified SNOMED: 51335546, [id number] (2) Hx of GI malignancy ICD Codes: Z85.00 - Personal history of malignant neoplasm of unspecified digestive organ SNOMED: 448706081, [id number] Status: stable, progressing Assessment/Plan dc if clear by gi Subjective Constitutional: Reports: weakness Allergies: Coded Allergies: No Known Allergies (Unverified , 12/03/17) All Systems: reviewed and negative except above Subjective calm in bed wants to go home Objective Last 24 Hour Vital Signs Date Time Temp Pulse Resp B/P (MAP) Pulse Ox O2 Delivery O2 Flow Rate FiO2 12/05/17 12:45 209.3 70 18 100 12/05/17 12:43 209.3 70 18 100 12/05/17 12:25 98.1 61 18 143/83 (103) 98 98.1 12/05/17 12:12 60 12/05/17 10:28 98.2 53 18 125/77 99 Room Air 98.2 12/05/17 10:13 56 18 104/77 100 Nasal Cannula 2 12/05/17 10:08 57 18 128/76 100 Nasal Cannula 2 12/05/17 10:03 98.5 70 18 124/82 100 Nasal Cannula 2 98.5 12/05/17 08:25 Room Air 12/05/17 07:52 98.1 64 18 127/64 (85) 98 98.1 12/05/17 07:51 63 12/05/17 04:00 66 12/05/17 04:00 98.1 62 18 115/65 (82) 98 98.1 12/05/17 00:00 62 12/05/17 00:00 98.0 64 20 103/63 (76) 95 98.0 12/04/17 21:00 Room Air 12/04/17 20:00 97.9 65 18 116/75 (89) 99 97.9 12/04/17 20:00 64 12/04/17 16:00 62 12/04/17 15:48 97.5 64 18 101/59 (73) 98 97.5 Intake and Output 12/04/17 12/05/17 19:00 07:00 Intake Total 852.5 ml 1198 ml Balance 852.5 ml 1198 ml Intake Oral 240 ml IV Total 612.5 ml 1198 ml # Voids 3 5 # Bowel Movements 1 15 Laboratory Tests 12/04/17 18:10: White Blood Count 9.1, Red Blood Count 3.53L, Hemoglobin 10.6L, Hematocrit 31.4L , Mean Corpuscular Volume 89, Mean Corpuscular Hemoglobin 30.1, Mean Corpuscular Hemoglobin Concent 33.9, Red Cell Distribution Width 11.5L, Platelet Count 207, Mean Platelet Volume 6.7, Neutrophils (%) (Auto) 59.5, Lymphocytes (%) (Auto) 32.4, Monocytes (%) (Auto) 5.5, Eosinophils (%) (Auto) 1.4, Basophils (%) (Auto) 1.2 12/04/17 18:15: Prothrombin Time 10.7, Prothromb Time International Ratio 1.0 12/05/17 05:54: White Blood Count 5.5, Red Blood Count 3.21L, Hemoglobin 9.6L, Hematocrit 27.6L , Mean Corpuscular Volume 86, Mean Corpuscular Hemoglobin 29.9, Mean Corpuscular Hemoglobin Concent 34.7, Red Cell Distribution Width 11.2L, Platelet Count 173, Mean Platelet Volume 7.0, Neutrophils (%) (Auto) , Lymphocytes (%) (Auto) , Monocytes (%) (Auto) , Eosinophils (%) (Auto) , Basophils (%) (Auto) , Prothrombin Time 11.2, Prothromb Time International Ratio 1.1, Differential Total Cells Counted 100, Neutrophils % (Manual) 65, Lymphocytes % (Manual) 28, Monocytes % (Manual) 6, Eosinophils % (Manual) 1, Basophils % (Manual) 0, Band Neutrophils 0, Other Cell Type , Platelet Estimate Adequate, Platelet Morphology Normal, Red Blood Cell Morphology Normal, Erythrocyte Sedimentation Rate 5, Reticulocyte Count 1.7, Activated Partial Thromboplast Time 27, Sodium Level 145, Potassium Level 3.6, Chloride Level 113H , Carbon Dioxide Level 27, Anion Gap 5, Blood Urea Nitrogen 9, Creatinine 0.7, Estimat Glomerular Filtration Rate , Glucose Level 113H, Calcium Level 7.9L, Iron Level 109, Total Iron Binding Capacity 238L, Percent Iron Saturation 46, Unsaturated Iron Binding 129, Lactate Dehydrogenase 153, Carcinoembryonic Antigen [Pending], Vitamin B12 Level 861, Folate 18.5 Height (Feet): 5 Height (Inches): 5.00 Weight (Pounds): 131 General Appearance: alert EENT: normal ENT inspection Neck: normal alignment Cardiovascular: normal peripheral pulses, normal rate, regular rhythm Respiratory/Chest: chest wall non-tender, lungs clear, normal breath sounds Abdomen: normal bowel sounds, non tender, soft Extremities: normal inspection Edema: no edema noted Arm (L), no edema noted Arm (R), no edema noted Leg (L), no edema noted Leg (R), no edema noted Pedal (L), no edema noted Pedal (R), no edema noted Generalized Neurologic: responsive, motor weakness Skin: normal pigmentation, warm/dry Kartik London DO Dec 05, 2017 14:33
[2017-12-05] MEDS ORDERED: D5NS 1000ml IV ONE (17:33)
[2017-12-05] MEDS ORDERED: NS 275ml ONE (17:33)
[2017-12-05] MEDS ORDERED: Tubing IV Secondary IV ONE (17:33)
[2017-12-05] MEDS ORDERED: Tubing Blood Filter IV ONE (17:33)
--- NOTE | 2017-12-06 13:41 | Discharge Summary ---
Discharge Summary Discharge Summary _ DATE OF ADMISSION: 12/03/2017 DATE OF DISCHARGE: 12/05/2017 CONSULTANTS: Dr. Cliff Luna BRIEF HOSPITAL COURSE: Patient is a 72-year-old male, who lives at home, with history of duodenal cancer in 2013 status post surgery. The patient developed rectal bleed. He was dizzy and weak, and presented to ED for evaluation of increased bloody stools. He was noted to have increased dark stools as well as intermittent epigastric abdominal discomfort. The patient was recently seen by his oncologist and had been advised to have surveillance screening every 6 months. On evaluation at ED, blood pressure was 110/66, heart rate of 78. Blood work showed WBC of 13.8, hemoglobin 10, hematocrit 29. Electrolytes were normal. Troponin was negative. LFTs and lipase were normal. EKG showed sinus rhythm at a rate of [address] or T-wave changes. She was given IV acid blockers and was started on IV hydration. He was then admitted for evaluation of GI bleed. He was seen by ordnance engineer. He was placed on Protonix drip. Hemoglobin dropped to 8. He was given 1 unit packed RBC. On 12/05/2017, he underwent upper endoscopy and colonoscopy. There was evidence of small ulceration at the anastomosis with little blood probably source of bleeding. A Hemoclip was placed which successfully stopped the bleeding. Colonoscopy revealed a diminutive polyp in the transverse colon which was removed by cold biopsy forcep technique. He was advised to be on proton pump inhibitors and Carafate. Diet was eventually advanced. Leukocytosis resolved. H&H was stable. He was tolerating diet. He was advised to follow-up at [facility]. He was then discharged home. FINAL DIAGNOSES: Upper GI bleed GI duodenal cancer status post resection Anemia of iron deficiency Anemia due to GI bleed status post blood transfusion Leukocytosis likely secondary to malignancy and reactive process Failure to thrive due to malignancy DISPOSITION: Patient was discharged home. DISCHARGE MEDICATIONS: Refer to Discharge Medication List. DISCHARGE INSTRUCTIONS: Follow up with PCP in a week. I have been assigned to dictate discharge summary on this account, and I was not involved in the patient's management. Rossana Garcia NP Dec 06, 2017 13:41
== END 2017-12-05 17:34 | disposition home or self-care (01) | DRG 379 ==
LOC: EDBD 19:45 → EMR 20:00 → 2E 20:59 → EDBEDREQ 21:13
PROC: 30233N1 Transfusion of Nonautologous Red Blood Cells into Peripheral Vein, Percutaneous Approach (ICD-10-PCS; principal; 2017-12-04)
PROC: 0W3P8ZZ Control Bleeding in Gastrointestinal Tract, Via Natural or Artificial Opening Endoscopic (ICD-10-PCS; 2017-12-05 09:41)
PROC: 0DBL8ZZ Excision of Transverse Colon, Via Natural or Artificial Opening Endoscopic (ICD-10-PCS; 2017-12-05 09:41)
PROC: 0DB78ZX Excision of Stomach, Pylorus, Via Natural or Artificial Opening Endoscopic, Diagnostic (ICD-10-PCS; 2017-12-05 09:41)
PROC: 0DB68ZX Excision of Stomach, Via Natural or Artificial Opening Endoscopic, Diagnostic (ICD-10-PCS; 2017-12-05 09:41)
DX: K92.2 Gastrointestinal hemorrhage, unspecified (principal); Z85.038 Personal history of other malignant neoplasm of large intestine; Z90.49 Acquired absence of other specified parts of digestive tract; D50.0 Iron deficiency anemia secondary to blood loss (chronic); R62.7 Adult failure to thrive; K28.4 Chronic or unspecified gastrojejunal ulcer with hemorrhage; K29.70 Gastritis, unspecified, without bleeding
CPT/HCPCS: 36415; 80048; 80053; 81001; 82150; 82270; 82378; 82550; 82607; 82728; 82746; 83540; 83550; 83615; 83690; 83735; 84100; 84133; 84300; 84484; 84550; 85007; 85025; 85044; 85060; 85610; 85651; 85730; 86140; 86850; 86900; 86901; 86920; 89050; 93005; 93970; 94003; 94150; 99285